=== PATIENT | male | born 1995 | race Caucasian/White ===

== ENCOUNTER 2022-06-27 18:16 | Inpatient (IN) | payer MEDICAID, SELFPAY ==
--- NOTE | ~2022-06-27 | CT_ITS ---
EXAMINATION: CT HEAD WITHOUT CONTRAST CLINICAL INFORMATION: new onset headache, HIV, fever COMPARISON: None. TECHNIQUE: Contiguous axial imaging was performed of the head without the administration of IV contrast. This CT examination was performed using dose optimization techniques as appropriate, variously including the following: *Automated exposure control *Adjustment of mA and/or kV according to patient size (this includes techniques or standardized protocols for targeted exams where dose is matched to indication/reason for exam; i.e. extremities or head) *Use of iterative reconstruction technique Dose: 764 mGy-cm FINDINGS: There is no evidence of acute intracranial hemorrhage or territorial infarction. No abnormal mass-effect or midline shift is seen. Lundberg to white matter differentiation is well preserved. No extra axial fluid collections. The ventricles are normal in size and configuration. There is no abnormal attenuation within the brain parenchyma. The soft tissues and osseous structures are normal. The sinuses and mastoid air cells are clear. CT/CT head/brain wo IV con IMPRESSION: No acute intracranial pathology.
--- NOTE | ~2022-06-27 | XR_ITS ---
EXAMINATION: XR PORTABLE CHEST CLINICAL INFORMATION: Fever etiology? COMPARISON: None. TECHNIQUE: AP portable upright view of the chest FINDINGS: Lungs are clear. No consolidation, pneumothorax, or pleural effusion. Cardiac and mediastinal contours are normal. Pulmonary vasculature is unremarkable. Osseous structures are unremarkable. XR/XR chest 1V IMPRESSION: No acute cardiopulmonary findings
--- NOTE | ~2022-06-27 | CT_ITS ---
EXAMINATION: CT ABDOMEN AND PELVIS WITH CONTRAST CLINICAL INFORMATION: HIV, hepatitis-C, with fever elevated LFT COMPARISON: None TECHNIQUE: Multidetector volumetric images were obtained from the superior aspect of the liver through the pubic symphysis following administration 85 mL of Omnipaque 350 intravenous contrast. Sagittal and coronal reformatted images were obtained on the technologist's workstation. Oral contrast: No This CT examination was performed using dose optimization techniques as appropriate, variously including the following: *Automated exposure control *Adjustment of mA and/or kV according to patient size (this includes techniques or standardized protocols for targeted exams where dose is matched to indication/reason for exam; i.e. extremities or head) *Use of iterative reconstruction technique DLP: 709 mGy-cm FINDINGS: LUNG BASES: Mild dependent atelectasis. LIVER, GALLBLADDER, AND BILIARY TREE: Liver is normal in size. Assessment of the contour is slightly limited by respiratory motion. No focal lesions are identified. Subtle periportal edema. The gallbladder is unremarkable with no evidence of radiopaque gallstones, gallbladder wall thickening, or obvious pericholecystic inflammatory changes. PANCREAS: Normal appearance of the pancreas. Subtle adjacent retroperitoneal fat stranding. No ductal dilatation. SPLEEN: Unremarkable. ADRENAL GLANDS: Normal appearance of the adrenal glands. Subtle adjacent retroperitoneal fat stranding is noted in this region. KIDNEYS AND URETERS: The kidneys are normal in size, shape, and attenuation. No hydronephrosis, hydroureter, or calculi seen. No perinephric stranding. BLADDER: Mild bladder wall thickening, likely due in part to under distention. GASTROINTESTINAL TRACT: Stomach, small bowel, and colon are normal in caliber. Normal appendix. No bowel wall thickening or surrounding inflammatory fat stranding. Moderate volume of stool in the colon. ABDOMINAL WALL: No significant hernia is appreciated. LYMPH NODES: Numerous subcentimeter retroperitoneal lymph nodes are present throughout the abdomen, measuring up to 8 mm in short axis, within normal limits by size criteria. VASCULAR: Unremarkable. PELVIC VISCERA: Unremarkable. OSSEOUS STRUCTURES: Unremarkable. CT/CT abdomen pelvis w IV con IMPRESSION: Subtle periportal edema in the liver, a nonspecific finding. This can be seen with multiplicity of conditions, most typically systemic hypervolemia. Viral hepatitis and cholangitis can also produce this appearance. Subtle retroperitoneal fat stranding with known numerous subcentimeter retroperitoneal lymph nodes, likely reactive in nature. This appearance could be due to chronic inflammation arising from the liver or pancreas amongst other possibilities. No specific findings of acute pancreatitis. Mild bladder wall thickening. Recommend correlation with urinalysis to exclude cystitis. Fleischner guidelines were followed.
--- NOTE | ~2022-06-27 | US_ITS ---
EXAMINATION: US ABDOMEN LIMITED CLINICAL INFORMATION: Nausea, vomiting, abdominal pain. COMPARISON: None TECHNIQUE: Real-time imaging of the right upper quadrant abdominal viscera, per ordering instruction only imaging of the gallbladder, right kidney and common bile duct were obtained. FINDINGS: GALLBLADDER: Normal. The gallbladder is physiologically distended without evidence of stones, sludge, polyps, wall thickening or pericholecystic fluid. COMMON BILE DUCT: Normal in caliber measuring 0.3 cm in diameter. RIGHT KIDNEY: Normal. No hydronephrosis. No renal calculi or focal parenchymal lesions. The kidney measures 10.3 cm in maximum dimension. US/US abdomen limited IMPRESSION: Unremarkable sonographic appearance of the gallbladder, common bile duct and right kidney.
[2022-06-27 18:21] VITALS: BP 106/65; PULSE 110; O2SAT 97
[2022-06-27 19:34] VITALS: BP 108/69; PULSE 139; RESP 16; TEMP 36.4; O2SAT 95; BMI 29.2
--- NOTE | 2022-06-27 19:35 | ED.NAVMDI ---
HPI - Nausea/Vomiting/Diarrhea General Chief complaint: Abdominal Pain <SUKH Baker - Last Filed: 06/27/22 19:42> Stated complaint: NAUSEA/VOMITING <SUKH Baker - Last Filed: 06/27/22 19:42> Time Seen by Provider: 06/27/22 22:10 <SUKH Baker - Last Filed: 06/27/22 19:42> Source: patient <Saman Huffman MD - Last Filed: 06/28/22 07:11> Mode of arrival: ambulatory <Saman Huffman MD - Last Filed: 06/28/22 07:11> Limitations: no limitations <Saman Huffman MD - Last Filed: 06/28/22 07:11> History of Present Illness HPI Narrative: Patient from [facility] with history of frequent cyclic vomiting syndrome, HIV with undetectable viral load, untreated hepatitis-C comes here for vomiting earlier today patient said he vomited only 1 time but was a big vomiting. Has history of same in the past multiple times denies use of cannabis also asking for crisis to help him out because of increased anxiety/panic attacks patient denies any significant abdominal pain patient does have a toothache and took penicillin earlier denies any pain now patient does not use any IVDA no back pain <Saman Huffman MD - Last Filed: 06/28/22 07:11> Related Data Allergies/Adverse reactions: Allergies Allergy/AdvReac Type Severity Reaction Status Date / Time Penicillins Allergy Vomiting Verified 06/28/22 03:27 <SUKH Baker - Last Filed: 06/27/22 19:42> Review of Systems Review of Systems: Yes all other systems are reviewed and are negative <Saman Huffman MD - Last Filed: 06/28/22 07:11> [facility] Social History Social History: Social History Alcohol intake: never Smoked in Last 30 Days: Yes Use of substances other than those prescribed or required for medical reasons: No Substance Use Type: Prescription Drugs Substance Use Type Other:: clonidine bid at bedtime Substance Use Frequency: Daily Substance Use Frequency Other:: 1 Last Used Substance: Days (ago) Any prior treatment program specific to substance use: Yes Advance Directives: No Advance Directives Information Provided: No <SUKH Baker - Last Filed: 06/27/22 19:42> Physical Exam Vital Signs: Vital Signs: Last Vital Signs Temp 99.2 F 06/28/22 04:33 Pulse 122 H 06/28/22 04:33 Resp 22 H 06/28/22 04:33 BP 132/70 06/28/22 04:33 Pulse Ox 97 06/28/22 04:33 O2 Del Method 06/28/22 04:33 BMI result Body Mass Index 29.2 <SUKH Baker - Last Filed: 06/27/22 19:42> Vital Signs: Last Vital Signs Temp 99.2 F 06/28/22 04:33 Pulse 122 H 06/28/22 04:33 Resp 22 H 06/28/22 04:33 BP 132/70 06/28/22 04:33 Pulse Ox 97 06/28/22 04:33 O2 Del Method 06/28/22 04:33 BMI result Body Mass Index 29.2 <Saman Huffman MD - Last Filed: 06/28/22 07:11> Appearance: Alert. Oriented X3. No acute distress. Eyes: PERRLA, No Nystagmus no pallor or icterus ENT: Pharynx normal. Oral Mucosa moist old cavity left upper premolar without any significant gum swelling or abscess Neck: Normal inspection. Neck supple. CVS: Normal heart rate and rhythm. Pulses normal. Respiratory: No respiratory distress. Equal air entry bilateral, no wheezing/rales/rhonchi Abdomen: Soft and nontender. Bowel sounds are present, no mass palpable, no CVA tenderness Skin: Skin warm and dry. Normal skin color. Normal skin turgor. Extremities: No lower extremity edema. No calf tenderness Neuro: Oriented X 3. No motor deficit. No sensory deficit.No cerebellar signs , cranial nerves II-XII intact <Saman Huffman MD - Last Filed: 06/28/22 07:11> Course Course Course Narrative: RME-- 27yo M presenting to ED from [facility] c/o epigastric abdominal pain, nausea and projectile vomiting x today. Admits he is on Penicillin for dental infection and has had similar sx in the past w/P[facility]. Also states someone else in the house has similar sx. Denies fever, constipation, dysuria/hematuria Abd soft with epigastric & RUQ ttp. Patient pale in triage, asking for juice and crackers Labs, UA, Abd US, IVF, SL Zofran, Maalox and pepcid ordered <USKH Baker - Last Filed: 06/27/22 19:42> Medications Administered Discontinued Medications Generic Name Dose Route Start Last Admin Trade Name Fresteven PRN Reason Stop Dose Admin Acetaminophen 650 mg 06/28/22 01:43 06/28/22 01:46 Acetaminophen 325 Mg Tablet PO 06/28/22 01:44 650 mg ONCE ONE Administration Al Hydroxide/Mg Hydroxide 30 ml 06/27/22 19:37 06/27/22 19:44 Magnesium Hydrox/Alum Hydrox 30 Ml Oral.Susp PO 06/27/22 19:38 30 ml ONCE ONE Administration Famotidine 20 mg 06/27/22 19:37 06/27/22 22:39 Famotidine/Pf 20 Mg/2 Ml Vial IVPUSH 06/27/22 19:38 20 mg ONCE ONE Administration Sodium Chloride 1,000 mls @ 999 mls/hr 06/27/22 19:45 06/28/22 00:14 Ns IV 06/27/22 20:45 Infused .Q1H1M LAURA Infusion Magnesium Sulfate 2 gm in 50 mls @ 100 mls/hr 06/27/22 22:37 06/27/22 23:28 Magnesium Sulfate/H2o IV 06/27/22 23:06 Infused ONCE ONE Infusion Sodium Chloride 1,000 mls @ 999 mls/hr 06/28/22 01:32 06/28/22 03:00 Ns IV 06/28/22 02:32 Infused .Q1H1M ONE Infusion Sodium Chloride 1,000 mls @ 999 mls/hr 06/28/22 03:00 06/28/22 04:49 Ns IV 06/28/22 04:00 Infused .Q1H1M ONE Infusion Ceftriaxone Sodium 1 gm/ 50 mls @ 100 mls/hr 06/28/22 03:35 06/28/22 04:50 Sodium Chloride IV 06/28/22 04:04 Infused ONCE ONE Infusion Vancomycin HCl 1,000 mg/ 270 mls @ 270 mls/hr 06/28/22 03:35 06/28/22 04:40 Sodium Chloride IV 06/28/22 04:34 270 mls/hr ONCE ONE Administration Ibuprofen 600 mg 06/28/22 02:58 06/28/22 03:16 Ibuprofen 600 Mg Tablet PO 06/28/22 02:59 600 mg ONCE ONE Administration Iohexol 85 ml 06/28/22 04:14 06/28/22 04:15 Iohexol 350 Mg/Ml 100 Ml Infus..Btl IV 06/28/22 04:15 85 ml ONCE ONE Administration Lorazepam 2 mg 06/27/22 22:37 06/27/22 22:47 Lorazepam 1 Mg Tablet PO 06/27/22 22:38 2 mg ONCE ONE Administration Lorazepam 2 mg 06/28/22 04:18 06/28/22 04:26 Lorazepam 1 Mg Tablet PO 06/28/22 04:19 2 mg ONCE ONE Administration Nicotine Polacrilex 2 mg 06/28/22 03:37 06/28/22 06:15 Nicotine Polacrilex 2 Mg Gum BUCCAL 2 mg Q2H PRN Administration Nicotine Cravings Ondansetron HCl 4 mg 06/27/22 19:39 06/27/22 19:44 Ondansetron Odt 4 Mg Tab.Rapdis TRANSLINGU 06/27/22 19:40 4 mg ONCE ONE Administration <SUKH Baker - Last Filed: 06/27/22 19:42> Medications Administered Discontinued Medications Generic Name Dose Route Start Last Admin Trade Name Freq PRN Reason Stop Dose Admin Acetaminophen 650 mg 06/28/22 01:43 06/28/22 01:46 Acetaminophen 325 Mg Tablet PO 06/28/22 01:44 650 mg ONCE ONE Administration Al Hydroxide/Mg Hydroxide 30 ml 06/27/22 19:37 06/27/22 19:44 Magnesium Hydrox/Alum Hydrox 30 Ml Oral.Susp PO 06/27/22 19:38 30 ml ONCE ONE Administration Famotidine 20 mg 06/27/22 19:37 06/27/22 22:39 Famotidine/Pf 20 Mg/2 Ml Vial IVPUSH 06/27/22 19:38 20 mg ONCE ONE Administration Sodium Chloride 1,000 mls @ 999 mls/hr 06/27/22 19:45 06/28/22 00:14 Ns IV 06/27/22 20:45 Infused .Q1H1M LAURA Infusion Magnesium Sulfate 2 gm in 50 mls @ 100 mls/hr 06/27/22 22:37 06/27/22 23:28 Magnesium Sulfate/H2o IV 06/27/22 23:06 Infused ONCE ONE Infusion Sodium Chloride 1,000 mls @ 999 mls/hr 06/28/22 01:32 06/28/22 03:00 Ns IV 06/28/22 02:32 Infused .Q1H1M ONE Infusion Sodium Chloride 1,000 mls @ 999 mls/hr 06/28/22 03:00 06/28/22 04:49 Ns IV 06/28/22 04:00 Infused .Q1H1M ONE Infusion Ceftriaxone Sodium 1 gm/ 50 mls @ 100 mls/hr 06/28/22 03:35 06/28/22 04:50 Sodium Chloride IV 06/28/22 04:04 Infused ONCE ONE Infusion Vancomycin HCl 1,000 mg/ 270 mls @ 270 mls/hr 06/28/22 03:35 06/28/22 04:40 Sodium Chloride IV 06/28/22 04:34 270 mls/hr ONCE ONE Administration Ibuprofen 600 mg 06/28/22 02:58 06/28/22 03:16 Ibuprofen 600 Mg Tablet PO 06/28/22 02:59 600 mg ONCE ONE Administration Iohexol 85 ml 06/28/22 04:14 06/28/22 04:15 Iohexol 350 Mg/Ml 100 Ml Infus..Btl IV 06/28/22 04:15 85 ml ONCE ONE Administration Lorazepam 2 mg 06/27/22 22:37 06/27/22 22:47 Lorazepam 1 Mg Tablet PO 06/27/22 22:38 2 mg ONCE ONE Administration Lorazepam 2 mg 06/28/22 04:18 06/28/22 04:26 Lorazepam 1 Mg Tablet PO 06/28/22 04:19 2 mg ONCE ONE Administration Nicotine Polacrilex 2 mg 06/28/22 03:37 06/28/22 06:15 Nicotine Polacrilex 2 Mg Gum BUCCAL 2 mg Q2H PRN Administration Nicotine Cravings Ondansetron HCl 4 mg 06/27/22 19:39 06/27/22 19:44 Ondansetron Odt 4 Mg Tab.Rapdis TRANSLINGU 06/27/22 19:40 4 mg ONCE ONE Administration <Saman Huffman MD - Last Filed: 06/28/22 07:11> Procedures Lumbar Puncture Time Out Performed: Yes <Saman Huffman MD - Last Filed: 06/28/22 07:11> Patient Position: upright <Saman Huffman MD - Last Filed: 06/28/22 07:11> Skin Prep: Povidone-Iodine 1% <Saman Huffman MD - Last Filed: 06/28/22 07:11> Local Anesthetic: lidocaine 1% <Saman Huffman MD - Last Filed: 06/28/22 07:11> Amount of anesthesia used (mL): 5 <Saman Huffman MD - Last Filed: 06/28/22 07:11> Spinal Needle Gauge: 22G <Saman Huffman MD - Last Filed: 06/28/22 07:11> Interspace Used: L4-L5 <Saman Huffman MD - Last Filed: 06/28/22 07:11> Fluid Initially Obtained: clear <Saman Huffman MD - Last Filed: 06/28/22 07:11> Complications: none <Saman Huffman MD - Last Filed: 06/28/22 07:11> MDM - Nausea/Vomiting/Diarrhea MDM Narrative Medical decision making narrative: Patient noticed to have fever without any leukocytosis etiology not very clear had a care is to the left upper premolar without any significant gum swelling patient not IV DA user no skin rash or open. , COVID, RSV, and flu negative. Will do blood culture lactic acid IV hydration 630 amPatient was given IV fluids more than 30 cc/kilogram also received IV vancomycin and Rocephin as a broad-spectrum coverage for possible sepsis with tachycardia fever and lactic acidosis and elevated procalcitonin level elevated liver functions are from hepatitis-C but we do not have any previous baseline LFTs source of infection is not very clear <Saman Huffman MD - Last Filed: 06/28/22 07:11> Lab Data Attestation: I reviewed the patient's lab results. <Saman Huffman MD - Last Filed: 06/28/22 07:11> Result diagrams: : 06/27/22 21:46 06/27/22 21:46 <SUKH Baker - Last Filed: 06/27/22 19:42> Labs: Lab Results 06/27/22 06/27/22 06/27/22 Range/Units 20:54 21:46 21:46 WBC 5.5 (4.8-10.8) X10*3/uL RBC 4.76 (4.60-5.80) X10*6/uL Hgb 13.0 L (14.0-18.0) g/dl Hct 41.0 L (42.0-52.0) % MCV 86.1 (80.0-98.0) fL MCH 27.3 (27.0-33.0) pg MCHC 31.7 (31.0-36.0) g/dl RDW 14.9 (11.0-16.0) % Plt Count 157 L (160-400) X10*3/uL MPV 10.5 (9.4-12.4) fL Immature Gran % (Auto) 0.4 (0.0-0.4) % Neut % (Auto) 92.6 H (45-73) % Lymph % (Auto) 5.5 L (20-40) % Mccone % (Auto) 1.1 L (2-11) % Eos % (Auto) 0.4 (0-4) % Baso % (Auto) 0.0 (0-2) % Lymph # (Auto) 0.3 L (1.2-4.9) X10*3/uL Mccone # (Auto) 0.1 (0.1-1.2) X10*3/uL Eos # (Auto) 0.0 (0.0-0.4) X10*3/uL Baso # (Auto) 0.0 (0.0-0.2) X10*3/uL Abs Immat Gran (auto) 0.02 (0.00-0.03) X10*3/uL Absolute Neuts (auto) 5.1 (2.0-8.3) x10*3/uL Absolute Nucleated RBC 0.000 (0.0-0.012) X10*3/uL Nucleated RBC % (auto) 0.0 (0.0-0.2) /100WBC Smear Tech's Comments VERIFIED Sodium 141 (135-145) mmol/L Potassium 4.9 (3.3-5.1) mmol/L Chloride 103 (96-108) mmol/L Carbon Dioxide 23 (22-29) mmol/L Anion Gap 20 (12-20) BUN 22 H (9-16) mg/dL Creatinine 1.38 (0.5-1.4) mg/dL Estim Creat Clear Calc 93.8 Estimated GFR > 60 Random Glucose 87 (60-115) mg/dL Lactic Acid (0.5-2.0) mmol/L Lactic Acid F/U @ 2Hr (0.5-2.0) mmol/L Calcium 9.7 (8.4-10.2) mg/dL Magnesium 1.4 L* (1.6-2.6) mg/dL Total Bilirubin 1.6 H (0.0-1.0) mg/dL Direct Bilirubin 1.2 H (0.0-0.5) mg/dL AST 285 H (5-37) U/L ALT 201 H (0-40) U/L Alkaline Phosphatase 175 H (39-117) U/L C-Reactive Protein 0.97 H (< or = 0.50) mg/dL Total Protein 7.9 (6.5-8.0) g/dL Albumin 4.1 (3.5-5.0) g/dL Lipase 17 (8-78) U/L Procalcitonin ng/mL Urine Color Urine Appearance Urine pH (5.0-9.0) Ur Specific [place] (1.005-1.025) Urine Protein (Neg-Trace) mg/dL Urine Glucose (UA) (Negative) mg/dL Urine Ketones (Negative) mg/dL Urine Blood (Negative) Urine Nitrite (Negative) Ur Leukocyte Esterase (Negative) Urine Opiates Screen (Not Detect) Urine Fentanyl Screen (Not Detect) Ur Barbiturates Screen (Not Detect) Ur Phencyclidine Scrn (Not Detect) Ur Amphetamines Screen (Not Detect) U Benzodiazepines Scrn (Not Detect) Urine Cocaine Screen (Not Detect) U Marijuana (THC) Screen (Not Detect) Ethyl Alcohol Cancelled < 10 Influenza Type A (PCR) (Negative) Influenza Type B (PCR) (Negative) RSV RNA Qual (PCR) (Negative) SARS-CoV-2 RNA (RT-PCR) (Negative) 06/27/22 06/27/22 06/27/22 Range/Units 21:46 21:46 21:46 WBC (4.8-10.8) X10*3/uL RBC (4.60-5.80) X10*6/uL Hgb (14.0-18.0) g/dl Hct (42.0-52.0) % MCV (80.0-98.0) fL MCH (27.0-33.0) pg MCHC (31.0-36.0) g/dl RDW (11.0-16.0) % Plt Count (160-400) X10*3/uL MPV (9.4-12.4) fL Immature Gran % (Auto) (0.0-0.4) % Neut % (Auto) (45-73) % Lymph % (Auto) (20-40) % Mccone % (Auto) (2-11) % Eos % (Auto) (0-4) % Baso % (Auto) (0-2) % Lymph # (Auto) (1.2-4.9) X10*3/uL Mccone # (Auto) (0.1-1.2) X10*3/uL Eos # (Auto) (0.0-0.4) X10*3/uL Baso # (Auto) (0.0-0.2) X10*3/uL Abs Immat Gran (auto) (0.00-0.03) X10*3/uL Absolute Neuts (auto) (2.0-8.3) x10*3/uL Absolute Nucleated RBC (0.0-0.012) X10*3/uL Nucleated RBC % (auto) (0.0-0.2) /100WBC Smear Tech's Comments Sodium (135-145) mmol/L Potassium (3.3-5.1) mmol/L Chloride (96-108) mmol/L Carbon Dioxide (22-29) mmol/L Anion Gap (12-20) BUN (9-16) mg/dL Creatinine (0.5-1.4) mg/dL Estim Creat Clear Calc Estimated GFR Random Glucose (60-115) mg/dL Lactic Acid (0.5-2.0) mmol/L Lactic Acid F/U @ 2Hr (0.5-2.0) mmol/L Calcium (8.4-10.2) mg/dL Magnesium (1.6-2.6) mg/dL Total Bilirubin (0.0-1.0) mg/dL Direct Bilirubin (0.0-0.5) mg/dL AST (5-37) U/L ALT (0-40) U/L Alkaline Phosphatase (39-117) U/L C-Reactive Protein (< or = 0.50) mg/dL Total Protein (6.5-8.0) g/dL Albumin (3.5-5.0) g/dL Lipase (8-78) U/L Procalcitonin 97.23 ng/mL Urine Color Dark Yellow Urine Appearance Clear Urine pH 5.5 (5.0-9.0) Ur Specific [place] >= 1.030 H (1.005-1.025) Urine Protein Negative (Neg-Trace) mg/dL Urine Glucose (UA) Negative (Negative) mg/dL Urine Ketones Trace (Negative) mg/dL Urine Blood Negative (Negative) Urine Nitrite Negative (Negative) Ur Leukocyte Esterase Negative (Negative) Urine Opiates Screen Not Detected (Not Detect) Urine Fentanyl Screen Not Detected (Not Detect) Ur Barbiturates Screen Not Detected (Not Detect) Ur Phencyclidine Scrn Not Detected (Not Detect) Ur Amphetamines Screen Not Detected (Not Detect) U Benzodiazepines Scrn POSITIVE H (Not Detect) Urine Cocaine Screen Not Detected (Not Detect) U Marijuana (THC) Screen Not Detected (Not Detect) Ethyl Alcohol Influenza Type A (PCR) (Negative) Influenza Type B (PCR) (Negative) RSV RNA Qual (PCR) (Negative) SARS-CoV-2 RNA (RT-PCR) (Negative) 06/28/22 06/28/22 06/28/22 Range/Units 01:50 03:19 06:00 WBC (4.8-10.8) X10*3/uL RBC (4.60-5.80) X10*6/uL Hgb (14.0-18.0) g/dl Hct (42.0-52.0) % MCV (80.0-98.0) fL MCH (27.0-33.0) pg MCHC (31.0-36.0) g/dl RDW (11.0-16.0) % Plt Count (160-400) X10*3/uL MPV (9.4-12.4) fL Immature Gran % (Auto) (0.0-0.4) % Neut % (Auto) (45-73) % Lymph % (Auto) (20-40) % Mccone % (Auto) (2-11) % Eos % (Auto) (0-4) % Baso % (Auto) (0-2) % Lymph # (Auto) (1.2-4.9) X10*3/uL [place] # (Auto) (0.1-1.2) X10*3/uL Eos # (Auto) (0.0-0.4) X10*3/uL Baso # (Auto) (0.0-0.2) X10*3/uL Abs Immat Gran (auto) (0.00-0.03) X10*3/uL Absolute Neuts (auto) (2.0-8.3) x10*3/uL Absolute Nucleated RBC (0.0-0.012) X10*3/uL Nucleated RBC % (auto) (0.0-0.2) /100WBC Smear Tech's Comments Sodium (135-145) mmol/L Potassium (3.3-5.1) mmol/L Chloride (96-108) mmol/L Carbon Dioxide (22-29) mmol/L Anion Gap (12-20) BUN (9-16) mg/dL Creatinine (0.5-1.4) mg/dL Estim Creat Clear Calc Estimated GFR Random Glucose (60-115) mg/dL Lactic Acid 2.8 H* (0.5-2.0) mmol/L Lactic Acid F/U @ 2Hr 2.8 H* (0.5-2.0) mmol/L Calcium (8.4-10.2) mg/dL Magnesium (1.6-2.6) mg/dL Total Bilirubin (0.0-1.0) mg/dL Direct Bilirubin (0.0-0.5) mg/dL AST (5-37) U/L ALT (0-40) U/L Alkaline Phosphatase (39-117) U/L C-Reactive Protein (< or = 0.50) mg/dL Total Protein (6.5-8.0) g/dL Albumin (3.5-5.0) g/dL Lipase (8-78) U/L Procalcitonin ng/mL Urine Color Urine Appearance Urine pH (5.0-9.0) Ur Specific [place] (1.005-1.025) Urine Protein (Neg-Trace) mg/dL Urine Glucose (UA) (Negative) mg/dL Urine Ketones (Negative) mg/dL Urine Blood (Negative) Urine Nitrite (Negative) Ur Leukocyte Esterase (Negative) Urine Opiates Screen (Not Detect) Urine Fentanyl Screen (Not Detect) Ur Barbiturates Screen (Not Detect) Ur Phencyclidine Scrn (Not Detect) Ur Amphetamines Screen (Not Detect) U Benzodiazepines Scrn (Not Detect) Urine Cocaine Screen (Not Detect) U Marijuana (THC) Screen (Not Detect) Ethyl Alcohol Influenza Type A (PCR) NEGATIVE (Negative) Influenza Type B (PCR) NEGATIVE (Negative) RSV RNA Qual (PCR) NEGATIVE (Negative) SARS-CoV-2 RNA (RT-PCR) NEGATIVE (Negative) <SUKH Baker - Last Filed: 06/27/22 19:42> Lab Results 06/27/22 06/27/22 06/27/22 Range/Units 20:54 21:46 21:46 WBC 5.5 (4.8-10.8) X10*3/uL RBC 4.76 (4.60-5.80) X10*6/uL Hgb 13.0 L (14.0-18.0) g/dl Hct 41.0 L (42.0-52.0) % MCV 86.1 (80.0-98.0) fL MCH 27.3 (27.0-33.0) pg MCHC 31.7 (31.0-36.0) g/dl RDW 14.9 (11.0-16.0) % Plt Count 157 L (160-400) X10*3/uL MPV 10.5 (9.4-12.4) fL Immature Gran % (Auto) 0.4 (0.0-0.4) % Neut % (Auto) 92.6 H (45-73) % Lymph % (Auto) 5.5 L (20-40) % Mccone % (Auto) 1.1 L (2-11) % Eos % (Auto) 0.4 (0-4) % Baso % (Auto) 0.0 (0-2) % Lymph # (Auto) 0.3 L (1.2-4.9) X10*3/uL [place] # (Auto) 0.1 (0.1-1.2) X10*3/uL Eos # (Auto) 0.0 (0.0-0.4) X10*3/uL Baso # (Auto) 0.0 (0.0-0.2) X10*3/uL Abs Immat Gran (auto) 0.02 (0.00-0.03) X10*3/uL Absolute Neuts (auto) 5.1 (2.0-8.3) x10*3/uL Absolute Nucleated RBC 0.000 (0.0-0.012) X10*3/uL Nucleated RBC % (auto) 0.0 (0.0-0.2) /100WBC Smear Tech's Comments VERIFIED Sodium 141 (135-145) mmol/L Potassium 4.9 (3.3-5.1) mmol/L Chloride 103 (96-108) mmol/L Carbon Dioxide 23 (22-29) mmol/L Anion Gap 20 (12-20) BUN 22 H (9-16) mg/dL Creatinine 1.38 (0.5-1.4) mg/dL Estim Creat Clear Calc 93.8 Estimated GFR > 60 Random Glucose 87 (60-115) mg/dL Lactic Acid (0.5-2.0) mmol/L Lactic Acid F/U @ 2Hr (0.5-2.0) mmol/L Calcium 9.7 (8.4-10.2) mg/dL Magnesium 1.4 L* (1.6-2.6) mg/dL Total Bilirubin 1.6 H (0.0-1.0) mg/dL Direct Bilirubin 1.2 H (0.0-0.5) mg/dL AST 285 H (5-37) U/L ALT 201 H (0-40) U/L Alkaline Phosphatase 175 H (39-117) U/L C-Reactive Protein 0.97 H (< or = 0.50) mg/dL Total Protein 7.9 (6.5-8.0) g/dL Albumin 4.1 (3.5-5.0) g/dL Lipase 17 (8-78) U/L Procalcitonin ng/mL Urine Color Urine Appearance Urine pH (5.0-9.0) Ur Specific [place] (1.005-1.025) Urine Protein (Neg-Trace) mg/dL Urine Glucose (UA) (Negative) mg/dL Urine Ketones (Negative) mg/dL Urine Blood (Negative) Urine Nitrite (Negative) Ur Leukocyte Esterase (Negative) Urine Opiates Screen (Not Detect) Urine Fentanyl Screen (Not Detect) Ur Barbiturates Screen (Not Detect) Ur Phencyclidine Scrn (Not Detect) Ur Amphetamines Screen (Not Detect) U Benzodiazepines Scrn (Not Detect) Urine Cocaine Screen (Not Detect) U Marijuana (THC) Screen (Not Detect) Ethyl Alcohol Cancelled < 10 Influenza Type A (PCR) (Negative) Influenza Type B (PCR) (Negative) RSV RNA Qual (PCR) (Negative) SARS-CoV-2 RNA (RT-PCR) (Negative) 06/27/22 06/27/22 06/27/22 Range/Units 21:46 21:46 21:46 WBC (4.8-10.8) X10*3/uL RBC (4.60-5.80) X10*6/uL Hgb (14.0-18.0) g/dl Hct (42.0-52.0) % MCV (80.0-98.0) fL MCH (27.0-33.0) pg MCHC (31.0-36.0) g/dl RDW (11.0-16.0) % Plt Count (160-400) X10*3/uL MPV (9.4-12.4) fL Immature Gran % (Auto) (0.0-0.4) % Neut % (Auto) (45-73) % Lymph % (Auto) (20-40) % [place] % (Auto) (2-11) % Eos % (Auto) (0-4) % Baso % (Auto) (0-2) % Lymph # (Auto) (1.2-4.9) X10*3/uL [place] # (Auto) (0.1-1.2) X10*3/uL Eos # (Auto) (0.0-0.4) X10*3/uL Baso # (Auto) (0.0-0.2) X10*3/uL Abs Immat Gran (auto) (0.00-0.03) X10*3/uL Absolute Neuts (auto) (2.0-8.3) x10*3/uL Absolute Nucleated RBC (0.0-0.012) X10*3/uL Nucleated RBC % (auto) (0.0-0.2) /100WBC Smear Tech's Comments Sodium (135-145) mmol/L Potassium (3.3-5.1) mmol/L Chloride (96-108) mmol/L Carbon Dioxide (22-29) mmol/L Anion Gap (12-20) BUN (9-16) mg/dL Creatinine (0.5-1.4) mg/dL Estim Creat Clear Calc Estimated GFR Random Glucose (60-115) mg/dL Lactic Acid (0.5-2.0) mmol/L Lactic Acid F/U @ 2Hr (0.5-2.0) mmol/L Calcium (8.4-10.2) mg/dL Magnesium (1.6-2.6) mg/dL Total Bilirubin (0.0-1.0) mg/dL Direct Bilirubin (0.0-0.5) mg/dL AST (5-37) U/L ALT (0-40) U/L Alkaline Phosphatase (39-117) U/L C-Reactive Protein (< or = 0.50) mg/dL Total Protein (6.5-8.0) g/dL Albumin (3.5-5.0) g/dL Lipase (8-78) U/L Procalcitonin 97.23 ng/mL Urine Color Dark Yellow Urine Appearance Clear Urine pH 5.5 (5.0-9.0) Ur Specific [place] >= 1.030 H (1.005-1.025) Urine Protein Negative (Neg-Trace) mg/dL Urine Glucose (UA) Negative (Negative) mg/dL Urine Ketones Trace (Negative) mg/dL Urine Blood Negative (Negative) Urine Nitrite Negative (Negative) Ur Leukocyte Esterase Negative (Negative) Urine Opiates Screen Not Detected (Not Detect) Urine Fentanyl Screen Not Detected (Not Detect) Ur Barbiturates Screen Not Detected (Not Detect) Ur Phencyclidine Scrn Not Detected (Not Detect) Ur Amphetamines Screen Not Detected (Not Detect) U Benzodiazepines Scrn POSITIVE H (Not Detect) Urine Cocaine Screen Not Detected (Not Detect) U Marijuana (THC) Screen Not Detected (Not Detect) Ethyl Alcohol Influenza Type A (PCR) (Negative) Influenza Type B (PCR) (Negative) RSV RNA Qual (PCR) (Negative) SARS-CoV-2 RNA (RT-PCR) (Negative) 06/28/22 06/28/22 06/28/22 Range/Units 01:50 03:19 06:00 WBC (4.8-10.8) X10*3/uL RBC (4.60-5.80) X10*6/uL Hgb (14.0-18.0) g/dl Hct (42.0-52.0) % MCV (80.0-98.0) fL MCH (27.0-33.0) pg MCHC (31.0-36.0) g/dl RDW (11.0-16.0) % Plt Count (160-400) X10*3/uL MPV (9.4-12.4) fL Immature Gran % (Auto) (0.0-0.4) % Neut % (Auto) (45-73) % Lymph % (Auto) (20-40) % [place]cc[place] % (Auto) (2-11) % Eos % (Auto) (0-4) % Baso % (Auto) (0-2) % Lymph # (Auto) (1.2-4.9) X10*3/uL [place] # (Auto) (0.1-1.2) X10*3/uL Eos # (Auto) (0.0-0.4) X10*3/uL Baso # (Auto) (0.0-0.2) X10*3/uL Abs Immat Gran (auto) (0.00-0.03) X10*3/uL Absolute Neuts (auto) (2.0-8.3) x10*3/uL Absolute Nucleated RBC (0.0-0.012) X10*3/uL Nucleated RBC % (auto) (0.0-0.2) /100WBC Smear Tech's Comments Sodium (135-145) mmol/L Potassium (3.3-5.1) mmol/L Chloride (96-108) mmol/L Carbon Dioxide (22-29) mmol/L Anion Gap (12-20) BUN (9-16) mg/dL Creatinine (0.5-1.4) mg/dL Estim Creat Clear Calc Estimated GFR Random Glucose (60-115) mg/dL Lactic Acid 2.8 H* (0.5-2.0) mmol/L Lactic Acid F/U @ 2Hr 2.8 H* (0.5-2.0) mmol/L Calcium (8.4-10.2) mg/dL Magnesium (1.6-2.6) mg/dL Total Bilirubin (0.0-1.0) mg/dL Direct Bilirubin (0.0-0.5) mg/dL AST (5-37) U/L ALT (0-40) U/L Alkaline Phosphatase (39-117) U/L C-Reactive Protein (< or = 0.50) mg/dL Total Protein (6.5-8.0) g/dL Albumin (3.5-5.0) g/dL Lipase (8-78) U/L Procalcitonin ng/mL Urine Color Urine Appearance Urine pH (5.0-9.0) Ur Specific [place] (1.005-1.025) Urine Protein (Neg-Trace) mg/dL Urine Glucose (UA) (Negative) mg/dL Urine Ketones (Negative) mg/dL Urine Blood (Negative) Urine Nitrite (Negative) Ur Leukocyte Esterase (Negative) Urine Opiates Screen (Not Detect) Urine Fentanyl Screen (Not Detect) Ur Barbiturates Screen (Not Detect) Ur Phencyclidine Scrn (Not Detect) Ur Amphetamines Screen (Not Detect) U Benzodiazepines Scrn (Not Detect) Urine Cocaine Screen (Not Detect) U Marijuana (THC) Screen (Not Detect) Ethyl Alcohol Influenza Type A (PCR) NEGATIVE (Negative) Influenza Type B (PCR) NEGATIVE (Negative) RSV RNA Qual (PCR) NEGATIVE (Negative) SARS-CoV-2 RNA (RT-PCR) NEGATIVE (Negative) <Saman Huffman MD - Last Filed: 06/28/22 07:11> Critical Care Time Critical Care Time Critical Care Time: Yes <Saman Huffman MD - Last Filed: 06/28/22 07:11> Total Critical Care Time: 65 <Saman Huffman MD - Last Filed: 06/28/22 07:11> Attestation: The patient was critically ill with a high probability of imminent or life threatening deterioration. I spent greater than70 minutes of discontinuous time evaluating the patient,delivering critical care at the bedside, discussing and evaluating pertinent data with consultants. Critical care time does not include time spent performing separately billable procedures or teaching. Total time spent performing critical care was 60 minutes. <Saman Huffman MD - Last Filed: 06/28/22 07:11> Discharge Plan Discharge Clinical Impression: Fever, Elevated lactic acid level, Vomiting <SUKH Baker - Last Filed: 06/27/22 19:42> Patient Disposition: Admitted As Inpatient <SUKH Baker - Last Filed: 06/27/22 19:42>
[2022-06-27] MEDS: Magnesium Hydrox/Alum Hydrox 30 ML ORAL.SUSP PO (19:44)
[2022-06-27] MEDS: Ondansetron ODT 4 MG TAB.RAPDIS TRANSLINGU (19:44)
[2022-06-27 22:00] LABS: Appearance Urine Clear; Color Urine Dark Yellow; Eosinophils Percent Auto 0.4 % (0-4); Glucose Urine UA Negative (Negative); Imm Gran Abs Auto 0.02 X10*3/uL (0.00-0.03); Imm Gran Pct Auto 0.4 % (0.0-0.4); Leukocyte Esterase Urine Negative (Negative); Lymphocytes Absolute Auto 0.3 X10*3/uL (1.2-4.9); Lymphocytes Percent Auto 5.5 % (20-40); MANUAL DIFF FLAG SCAN; Mean Corpuscular HGB Conc 31.7 g/dl (31.0-36.0); Mean Corpuscular Hemoglobin 27.3 pg (27.0-33.0); Mean Corpuscular Volume 86.1 fL (80.0-98.0); Mean Platelet Volume 10.5 fL (9.4-12.4); Monocytes Absolute Auto 0.1 X10*3/uL (0.1-1.2); Monocytes Percent Auto 1.1 % (2-11); Neutrophils Absolute Auto 5.1 x10*3/uL (2.0-8.3); Neutrophils Percent Auto 92.6 % (45-73); Nitrite Urine Negative (Negative); PH 5.5 (5.0-9.0); Platelet Count 157 X10*3/uL (160-400); Red Blood Count 4.76 X10*6/uL (4.60-5.80); Red Cell Distribution Width 14.9 % (11.0-16.0); SCAN SMEAR FLAG 1; Specific Gravity - Urine >= 1.030 (1.005-1.025); Urine Blood Negative (Negative); Urine Ketones Trace mg/dL (Negative); Urine Protein Negative (Neg-Trace); White Blood Count 5.5 X10*3/uL (4.8-10.8)
[2022-06-27 22:09] LABS: Amphetamine Screen Urine Not Detected (Not Detect); Barbiturates, Urine Not Detected (Not Detect); Benzodiazepines Screen Urine POSITIVE (Not Detect); Cannabinoid Screen Urine Not Detected (Not Detect); Cocaine Screen Urine Not Detected (Not Detect); Fentanyl, urine Not Detected (Not Detect); Opiate Screen Urine Not Detected (Not Detect); Phencyclidine Screen Urine Not Detected (Not Detect)
[2022-06-27 22:15] LABS: Alanine Aminotransferase 201 U/L (0-40); Albumin Level 4.1 g/dL (3.5-5.0); Alkaline Phosphatase 175 U/L (39-117); Anion Gap 20 (12-20); Aspartate Amino Transferase 285 U/L (5-37); Bilirubin Direct 1.2 mg/dL (0.0-0.5); Bilirubin Total 1.6 mg/dL (0.0-1.0); Blood Urea Nitrogen 22 mg/dL (9-16); Calcium 9.7 mg/dL (8.4-10.2); Carbon Dioxide 23 mmol/L (22-29); Chloride 103 mmol/L (96-108); Creatinine Clr Calc Pharmacy 93.8; Estimated Glomerular Filt Rate > 60; Ethanol < 10 mg/dL; Glucose Random 87 mg/dL (60-115); Lipase 17 U/L (8-78); Magnesium 1.4 mg/dL (1.6-2.6); Potassium 4.9 mmol/L (3.3-5.1); Sodium 141 mmol/L (135-145); Total Protein 7.9 g/dL (6.5-8.0)
[2022-06-27 22:20] LABS: SLIDE REVIEW VERIFIED
[2022-06-27] MEDS: 0.9 % Sodium Chloride 1,000 ML 999 ML IV (22:35)
[2022-06-27] MEDS: Famotidine/PF 20 MG/2 ML VIAL IVPUSH (22:39)
[2022-06-27] MEDS: LORazepam 1 MG TABLET 2 MG PO (22:47)
[2022-06-27] MEDS: Magnesium Sulfate/H2O 2 GM/50 ML PIGGYBACK IV (22:48)
[2022-06-27 23:06] VITALS: BP 112/67; PULSE 124; RESP 18; TEMP 37.3; O2SAT 97
--- NOTE | 2022-06-27 23:11 | PC.NURSE ---
NS and pepcid admnistered late r/t meds were ordered while patient was in ED waiting area. Pt initially diaphoretic, pale skin cool to touch. Pt denying abdominal pain and nausea at this time was able to tolerate apple juice during po trial.
[2022-06-28] VITALS (7 sets, daily range): BP systolic 104–143; BP diastolic 62–88; PULSE 97–133; RESP 16–22; TEMP 36.4–38.5; O2SAT 94–97; BMI 30.2
[2022-06-28] MEDS: 0.9 % Sodium Chloride 1,000 ML 999 ML IV ×2 (01:37→03:17)
[2022-06-28] MEDS: Acetaminophen 325 MG TABLET 650 MG PO ×2 (01:46→17:43)
--- NOTE | 2022-06-28 01:56 | PC.NURSE ---
Pt is denying alcohol/drug use.
[2022-06-28 02:32] LABS: Influenza A PCR NEGATIVE (Negative); Influenza B PCR NEGATIVE (Negative); Resp Syncy Virus RNA Qual PCR NEGATIVE (Negative); SARS COV2 PCR INHOUSE NEGATIVE (Negative)
[2022-06-28] MEDS: Ibuprofen 600 MG TABLET PO (03:16)
[2022-06-28 03:37] LABS: Lactic Acid 2.8 mmol/L (0.5-2.0)
[2022-06-28] MEDS: cefTRIAXone sodium 1 GM in 0.9 % Sodium Chloride 50 ML IV (04:00)
[2022-06-28] MEDS: iohexoL 350 MG/ML 100 ML INFUS..BTL 85 ML IV (04:15)
[2022-06-28] MEDS: Nicotine Polacrilex 2 MG GUM BUCCAL ×2 (04:15→06:15)
[2022-06-28] MEDS: LORazepam 1 MG TABLET 2 MG PO (04:26)
[2022-06-28] MEDS: vancomycin HCL 1,000 MG in 0.9 % Sodium Chloride 250 ML 270 MG IV (04:40)
[2022-06-28 05:10] LABS: C Reactive Protein 0.97 mg/dL (< or = 0.50)
[2022-06-28 05:24] LABS: Reflex Lactate? Lactic Acid Added
[2022-06-28 06:00] LABS: Procalcitonin 97.23 ng/mL
[2022-06-28 06:29] LABS: ~Lactic Acid-LAB USE ONLY 2.8 mmol/L (0.5-2.0)
--- NOTE | 2022-06-28 06:55 | PC.NURSE ---
Provider performed lumbar puncture to test CSF for meningococcal infection. Pt tolerated procedure well. CSF was clear liquid. Pt informed to lay flat in bed for one hour post procedure. Pt has no change in mental status post procedure, no complaints of headache, nausea, or vomiting.
[2022-06-28 07:11] LABS: Glucose CSF 62 mg/dL; Total Protein CSF 29.6 mg/dL (15-45)
[2022-06-28 07:46] LABS: CSF Monos 11 %; CSF Other Cells % 4 %; Lymphocytes CSF 79 %; Neutrophils CSF 7 %
[2022-06-28 08:06] LABS: Reflex Lactate? 2 Y
[2022-06-28 08:20] LABS: CSF Monos 21 %; CSF Other Cells % 6 %; Lymphocytes CSF 67 %; Neutrophils CSF 6 %
[2022-06-28 08:21] LABS: Appearance CSF CLEAR; CSF Tube # 1; Color CSF COLORLESS; Red Blood Cell CSF 1 MM*3; White Blood Cell CSF 6 MM*3
[2022-06-28 08:22] LABS: Appearance CSF CLEAR; CSF Tube # 4
[2022-06-28 08:23] LABS: Color CSF COLORLESS; Red Blood Cell CSF 1 MM*3; White Blood Cell CSF 8 MM*3
[2022-06-28 08:33] LABS: CSF Appearance Clear, Colorless; CSF Tube # 2
--- NOTE | 2022-06-28 08:38 | P.HPHOSP_ITS ---
History of Present Illness Date of Service: 06/28/22 Attending physician on admission: Reina Mattson Chief Complaint: Vomiting 27-year-old gentleman currently residing [facility] for last 5 months with past medical history significant for recently diagnosed HIV and hepatitis-C has not received treatment for PAD presented to [facility] due to symptoms of nausea and vomiting, he had 1 episode of large vomitus non bloody without associated abdominal pain no diarrhea no other inmates with similar symptoms no outside food he has had multiple episodes of vomiting in the past his last marijuana use was 2 months ago patient complaining of worsening anxiety feels current medications are not helping to control his anxiety only Klonopin works, he is requesting for psychiatric evaluation patient few days ago diagnosed to have left-sided to pain for which she took penicillin for 3 days, currently denies tootache , denies fever chills rigors, in the emergency room patient was noted to have fever of 101.3, checks x-ray showed no acute abnormality, CT abdomen and pelvis showed subtle periportal edema in the liver nonspecific finding, subtle retroperitoneal fat stranding with known numerous subcentimeter retroperitoneal lymph nodes likely reactive, arising from chronic inflammation from liver or pancreas among other possibilities no acute pancreatitis was noted mild bladder wall thickening was noted, abdominal ultrasound showed unremarkable gallbladder, common bile duct and right kidney, urinalysis is unremarkable, CT head showed no acute abnormality, CBC normal, platelet 157, urine toxicology positive for benzo, patient is on Klonopin, influenza a, RSV and COVID negative, he was noted to have a low magnesium of 1.4, elevated AST, ALT, CRP 0.97 and elevated procalcitonin of 97.23 since is no source of infection found for fever patient underwent LP that showed WBC of 8, 1+ RBC, normal blood sugar and protein, patient noted to be very anxious in the emergency room required couple dosages of Ativan also received IV vancomycin, ceftriaxone and now being admitted to [facility] for continued monitoring and treatment for worsening anxiety, vomiting and fever. Review of Systems Review of Systems: General no headache no dizziness no fever chills. CVS no chest pain, no palpitation. Respiratory no cough no sob. Gastrointestinal nausea vomiting resolved, no abdominal pain no urinary urgency, no frequency Skin no rash musculoskeletal no pain PMFSH Pertinent family history: patient not aware of father's history patient's mother, sister and grand mother has severe anxiety Social History Household Members: None Housing: Other Do you presently have visiting nurse or other home services: No Alcohol intake: never Patient Tobacco Use Status: Current someday Tobacco user Tobacco use type: Cigarette Smoked in Last 30 Days: Yes Patient Interested in Nicotine Replacement: Yes Patient Given Instructions on How to Stop Smoking: Yes Date Education Initiated: 06/28/22 Use of substances other than those prescribed or required for medical reasons: No Substance Use Type: Prescription Drugs Substance Use Type Other:: clonidine bid at bedtime Substance Use Frequency: Daily Substance Use Frequency Other:: 1 Last Used Substance: Days (ago) Currently Displaying Signs/Symptoms of Drug Intoxication Withdrawal: No Any prior treatment program specific to substance use: Yes Have you been hit, kicked, punched, or otherwise hurt by someone within the past year? If so, by whom?: No Do you feel safe in your current relationship?: No Current Relationship Is there a partner from a previous relationship who is making you feel unsafe now?: No Are you made to feel afraid or neglected: No Advance Directives: No Advance Directives Information Provided: No Do you have thoughts of harming others: None Do you have a plan to hurt others: No Plan Recently lost weight without trying: No Nutrition Risks: No Nutritional Risk service: No Current occupational status: unemployed Meds Allergies Allergy/AdvReac Type Severity Reaction Status Date / Time Penicillins Allergy Vomiting Verified 06/28/22 03:27 Active Medications: Current Medications Nicotine Polacrilex (Nicotine Polacrilex 2 Mg Gum) 4 mg BUCCAL Q2H PRN PRN Reason: Nicotine Cravings Pharmacy Consult (Consult Rx Vancomycin Dosing) 1 each MISCELLANE DAILY PRN PRN Reason: Consult order Home Medications Medication Instructions Recorded Confirmed Last Taken Type baclofen 20 mg tablet 1 tab PO BID 06/28/22 06/28/22 06/27/22 History clonazepam 0.5 mg tablet 1 tab PO DAILY PRN panic attack 06/28/22 06/28/22 06/27/22 History clonidine HCl 0.1 mg tablet 1 tab PO TID PRN Anxiety/Insomnia 06/28/22 06/28/22 Unknown History diphenhydramine HCl 50 mg capsule 1 cap PO BEDTIME 06/28/22 06/28/2222 History (Banophen) gabapentin 800 mg tablet 1 tab PO TID 06/28/22 06/28/22 06/27/22 History methadone 10 mg/mL oral concentrate 155 mg PO DAILY 06/28/22 06/28/22 Unknown History nicotine (polacrilex) 2 mg buccal 2 mg PO Q1H PRN Smoking Cessation 06/28/22 06/28/22 06/27/22 History mini lozenge quetiapine 25 mg tablet 25 mg PO BID 06/28/22 Unknown History venlafaxine 75 mg capsule,extended 2 cap PO DAILY 06/28/22 06/28/22 06/27/22 History release 24 hr Physical Exam Vital Signs and Narrative: Vital Signs: Last Vital Signs Temp 97.7 F 06/28/22 07:18 Pulse 97 06/28/22 07:18 Resp 18 06/28/22 07:18 BP 123/73 06/28/22 07:18 Pulse Ox 97 06/28/22 07:18 O2 Del Method 06/28/22 07:18 BMI result Body Mass Index 29.2 Const: Other: General well-developed male awake alert x3, resting comfortably in no acute distress. HEENT pupils equal round reactive to light and accommodation oral cavity missing teeth, dental caries no redness no swelling, no tenderness Neck supple CVS regular rate rhythm, Respiratory lungs clear to auscultation, no respiratory distress, no wheeze, no rhonchi. Gastrointestinal abdomen soft, nontender, bowel sounds audible, no guarding , no rigidity. Extremities no edema. Neuro nonfocal patient moving all 4 extremity speech clear. Skin no rash psych appropriate affect Results Labs CBC and Chem 7: 06/27/22 21:46 06/27/22 21:46 Labs: Laboratory Results - last 24 hr 06/27/22 06/27/22 06/27/22 20:54 21:46 21:46 MCV 86.1 MCH 27.3 MCHC 31.7 RDW 14.9 Plt Count 157 L MPV 10.5 Immature Gran % (Auto) 0.4 Neut % (Auto) 92.6 H Lymph % (Auto) 5.5 L Childress % (Auto) 1.1 L Eos % (Auto) 0.4 Baso % (Auto) 0.0 Lymph # (Auto) 0.3 L Childress # (Auto) 0.1 Eos # (Auto) 0.0 Baso # (Auto) 0.0 Abs Immat Gran (auto) 0.02 Absolute Neuts (auto) 5.1 Absolute Nucleated RBC 0.000 Nucleated RBC % (auto) 0.0 Smear Tech's Comments VERIFIED Anion Gap 20 Estim Creat Clear Calc 93.8 Estimated GFR > 60 Random Glucose 87 Lactic Acid Lactic Acid F/U @ 2Hr Calcium 9.7 Magnesium 1.4 L* Total Bilirubin 1.6 H Direct Bilirubin 1.2 H AST 285 H ALT 201 H Alkaline Phosphatase 175 H C-Reactive Protein 0.97 H Total Protein 7.9 Albumin 4.1 Lipase 17 Procalcitonin Urine Color Urine Appearance Urine pH Ur Specific Hutchinson Urine Protein Urine Glucose (UA) Urine Ketones Urine Blood Urine Nitrite Ur Leukocyte Esterase CSF Tube Number CSF Volume CSF Appearance CSF Color CSF WBC CSF RBC CSF Neutrophils CSF Lymphocytes CSF Monocytes % CSF Other Cells % CSF Appearance (b) CSF Glucose CSF Total Protein Urine Opiates Screen Urine Fentanyl Screen Ur Barbiturates Screen Ur Phencyclidine Scrn Ur Amphetamines Screen U Benzodiazepines Scrn Urine Cocaine Screen U Marijuana (THC) Screen Ethyl Alcohol Cancelled < 10 Influenza Type A (PCR) Influenza Type B (PCR) RSV RNA Qual (PCR) SARS-CoV-2 RNA (RT-PCR) 06/27/22 06/27/22 06/27/22 21:46 21:46 21:46 MCV MCH MCHC RDW Plt Count MPV Immature Gran % (Auto) Neut % (Auto) Lymph % (Auto) Childress % (Auto) Eos % (Auto) Baso % (Auto) Lymph # (Auto) Childress # (Auto) Eos # (Auto) Baso # (Auto) Abs Immat Gran (auto) Absolute Neuts (auto) Absolute Nucleated RBC Nucleated RBC % (auto) Smear Tech's Comments Anion Gap Estim Creat Clear Calc Estimated GFR Random Glucose Lactic Acid Lactic Acid F/U @ 2Hr Calcium Magnesium Total Bilirubin Direct Bilirubin AST ALT Alkaline Phosphatase C-Reactive Protein Total Protein Albumin Lipase Procalcitonin 97.23 Urine Color Dark Yellow Urine Appearance Clear Urine pH 5.5 Ur Specific Hutchinson >= 1.030 H Urine Protein Negative Urine Glucose (UA) Negative Urine Ketones Trace Urine Blood Negative Urine Nitrite Negative Ur Leukocyte Esterase Negative CSF Tube Number CSF Volume CSF Appearance CSF Color CSF WBC CSF RBC CSF Neutrophils CSF Lymphocytes CSF Monocytes % CSF Other Cells % CSF Appearance (b) CSF Glucose CSF Total Protein Urine Opiates Screen Not Detected Urine Fentanyl Screen Not Detected Ur Barbiturates Screen Not Detected Ur Phencyclidine Scrn Not Detected Ur Amphetamines Screen Not Detected U Benzodiazepines Scrn POSITIVE H Urine Cocaine Screen Not Detected U Marijuana (THC) Screen Not Detected Ethyl Alcohol Influenza Type A (PCR) Influenza Type B (PCR) RSV RNA Qual (PCR) SARS-CoV-2 RNA (RT-PCR) 06/28/22 06/28/22 06/28/22 01:50 03:19 06:00 MCV MCH MCHC RDW Plt Count MPV Immature Gran % (Auto) Neut % (Auto) Lymph % (Auto) Childress % (Auto) Eos % (Auto) Baso % (Auto) Lymph # (Auto) Childress # (Auto) Eos # (Auto) Baso # (Auto) Abs Immat Gran (auto) Absolute Neuts (auto) Absolute Nucleated RBC Nucleated RBC % (auto) Smear Tech's Comments Anion Gap Estim Creat Clear Calc Estimated GFR Random Glucose Lactic Acid 2.8 H* Lactic Acid F/U @ 2Hr 2.8 H* Calcium Magnesium Total Bilirubin Direct Bilirubin AST ALT Alkaline Phosphatase C-Reactive Protein Total Protein Albumin Lipase Procalcitonin Urine Color Urine Appearance Urine pH Ur Specific Hutchinson Urine Protein Urine Glucose (UA) Urine Ketones Urine Blood Urine Nitrite Ur Leukocyte Esterase CSF Tube Number CSF Volume CSF Appearance CSF Color CSF WBC CSF RBC CSF Neutrophils CSF Lymphocytes CSF Monocytes % CSF Other Cells % CSF Appearance (b) CSF Glucose CSF Total Protein Urine Opiates Screen Urine Fentanyl Screen Ur Barbiturates Screen Ur Phencyclidine Scrn Ur Amphetamines Screen U Benzodiazepines Scrn Urine Cocaine Screen U Marijuana (THC) Screen Ethyl Alcohol Influenza Type A (PCR) NEGATIVE Influenza Type B (PCR) NEGATIVE RSV RNA Qual (PCR) NEGATIVE SARS-CoV-2 RNA (RT-PCR) NEGATIVE 06/28/22 06/28/22 06/28/22 06:35 06:35 06:35 MCV MCH MCHC RDW Plt Count MPV Immature Gran % (Auto) Neut % (Auto) Lymph % (Auto) Childress % (Auto) Eos % (Auto) Baso % (Auto) Lymph # (Auto) Childress # (Auto) Eos # (Auto) Baso # (Auto) Abs Immat Gran (auto) Absolute Neuts (auto) Absolute Nucleated RBC Nucleated RBC % (auto) Smear Tech's Comments Anion Gap Estim Creat Clear Calc Estimated GFR Random Glucose Lactic Acid Lactic Acid F/U @ 2Hr Calcium Magnesium Total Bilirubin Direct Bilirubin AST ALT Alkaline Phosphatase C-Reactive Protein Total Protein Albumin Lipase Procalcitonin Urine Color Urine Appearance Urine pH Ur Specific Hutchinson Urine Protein Urine Glucose (UA) Urine Ketones Urine Blood Urine Nitrite Ur Leukocyte Esterase CSF Tube Number 2 1 4 CSF Volume 1.0 1.0 CSF Appearance CLEAR CLEAR CSF Color COLORLESS COLORLESS CSF WBC 6 8 CSF RBC 1 1 CSF Neutrophils 7 6 CSF Lymphocytes 79 67 CSF Monocytes % 11 21 CSF Other Cells % 4 6 CSF Appearance (b) Clear, Colorless CSF Glucose 62 CSF Total Protein 29.6 Urine Opiates Screen Urine Fentanyl Screen Ur Barbiturates Screen Ur Phencyclidine Scrn Ur Amphetamines Screen U Benzodiazepines Scrn Urine Cocaine Screen U Marijuana (THC) Screen Ethyl Alcohol Influenza Type A (PCR) Influenza Type B (PCR) RSV RNA Qual (PCR) SARS-CoV-2 RNA (RT-PCR) Imaging Radiologist's Impressions: Impressions Abdomen Ultrasound 06/27/22 20:20 IMPRESSION: Unremarkable sonographic appearance of the gallbladder, common bile duct and right kidney. Chest X-Ray 06/28/22 03:22 IMPRESSION: No acute cardiopulmonary findings Abdomen/Pelvis CT 06/28/22 04:20 IMPRESSION: Subtle periportal edema in the liver, a nonspecific finding. This can be seen with multiplicity of conditions, most typically systemic hypervolemia. Viral hepatitis and cholangitis can also produce this appearance. Subtle retroperitoneal fat stranding with known numerous subcentimeter retroperitoneal lymph nodes, likely reactive in nature. This appearance could be due to chronic inflammation arising from the liver or pancreas amongst other possibilities. No specific findings of acute pancreatitis. Mild bladder wall thickening. Recommend correlation with urinalysis to exclude cystitis. Fleischner guidelines were followed. Head CT 06/28/22 05:29 IMPRESSION: No acute intracranial pathology. Assessment and Plan (1) Fever: Status: Acute (2) Elevated lactic acid level: Status: Acute (3) Vomiting: Status: Acute Plan 27-year-old gentleman recently diagnosed to have hepatitis-C and HIV currently residing [facility] prior history of IV heroin use sober time 5 years, history of occasional marijuana use, nicotine use disorder, no history of alcohol abuse presented to [facility] with 1 episode of vomiting and anxiety patient in the ER noted to be febrile workup showed normal WBC, your normal urinalysis, elevated LFTs and significantly elevated procalcitonin level is since no source of infection was found patient underwent LP fever and vomiting all symptoms resolved no recurrent fevers, normal WBC, spinal fluid with WBC of 8, normal glucose, normal protein, viral panel negative less likely meningitis normal UA, normal chest x-ray and normal abdominal CT, normal head CT, oral cavity with no infection noted to have significantly elevated procalcitonin of 97 will repeat level case discussed with ID she recommend azithromycin for atypical infection lactic acidosis due to mild dehydration due to GI loss resolved with IV fluid hypo magnesemia received 2 g of IV magnesium will follow labs history of HIV /hepatitis-C outpatient follow-up with ID elevated LFTs likely due to hepatitis-C likely contributing to nausea and vomiting recommend outpatient treatment history of substance abuse continue methadone tobacco use disorder continue nicotine gum, a smoking cessation advised Acute anxiety with history of anxiety not controlled on current medications, received 2 dosages of Ativan 2 mg still requesting for more medications, will obtain psych consult, resume all home medications including Atarax, Klonopin, Effexor DVT prophylaxis early ambulation in my clinical opinion patient will need 2 night inpatient stay due to fever elevated procalcitonin and elevated WBC in LP, and also for further evaluation and treatment for acute anxiety Quality Stroke Does the patient have a stroke diagnosis?: No VTE Prior VTE?: No VTE Risk Level:: Medical - low VTE Device Contraindication: Treatment Not Indicated VTE Drug Contraindication: Treatment Not Indicated
--- NOTE | 2022-06-28 09:18 | PC.NURSE ---
assumed care of this pt at 0700. pt sleeping at the time of assuming care. pt seen by Dr. Mattson.
--- NOTE | 2022-06-28 09:20 | PC.NURSE ---
Methadone verified by LILLY Collins at [facility] opiod treatment [place]. Last methadone dose 155 mg given 06/27/2022. Form faxed to pharmacy, Dr. Mattson notified.
[2022-06-28] MEDS: Lactated Ringers 1,000 ML 100 ML IVCONT (09:59)
[2022-06-28 10:11] LABS: Cryptococcus neoformans/gattii Not Detected (Not Detect.); Enterovirus Not Detected (Not Detect.); Escherichia coli K1 Not Detected (Not Detect.); Haemophilus influenzae Not Detected (Not Detect.); Herpes simplex virus 1 Not Detected (Not Detect.); Herpes simplex virus 2 Not Detected (Not Detect.); Human herpesvirus 6 Not Detected (Not Detect.); Human parechovirus Not Detected (Not Detect.); Listeria monocytogenes Not Detected (Not Detect.); Neisseria meningitidis Not Detected (Not Detect.); Streptococcus agalactiae Not Detected (Not Detect.); Streptococcus pneumoniae Not Detected (Not Detect.); Varicella zoster virus Not Detected (Not Detect.)
--- NOTE | 2022-06-28 10:25 | PC.NURSE ---
PT reports anxiety, refused atarax PO, states It's not going to do anything for me, I take clonidine at home . Pharmacist at bedside.
[2022-06-28] MEDS: Nicotine Polacrilex 2 MG GUM 4 MG BUCCAL ×3 (10:38→17:42)
--- NOTE | 2022-06-28 10:46 | PHA.MEDREC ---
Pharmacy Consult ? Medication Reconciliation Pharmacy has completed the medication reconciliation. [facility] states they take quetiapine 25mg bid, however no claim history to support.
[2022-06-28] MEDS: methADONE HCl 20 MG/2 ML ORAL.CONC 155 MG PO (10:57)
--- NOTE | 2022-06-28 11:15 | PC.NURSE ---
pt arguing and swearing, states I don't know why I'm being admitted, I will walk out if I'm being admitted for vomiting . this RN explained the reason for admission. pt replied I want to speak with the doctor . Dr. Mattson aware. pt moved to overflow unit.
--- NOTE | 2022-06-28 11:31 | PC.NURSE ---
Pt has refused his IV infusion. Pt is angery he is not getting the 'meds I am suppose to get.'
--- NOTE | 2022-06-28 11:43 | PC.NURSE ---
Pt is refusing to wear monitoring equipment at this time.
[2022-06-28] MEDS: Baclofen 20 MG TABLET PO ×2 (12:12→21:24)
[2022-06-28] MEDS: Venlafaxine HCl ER 150 MG CAP.ER.24H PO (12:12)
[2022-06-28] MEDS: clonazePAM 0.5 MG TABLET PO (12:12)
[2022-06-28 13:21] LABS: Procalcitonin 79.27 ng/mL
[2022-06-28 13:49] LABS: Adenovirus PCR Not Detected (Not Detect.); Bordetella parapertussis PCR Not Detected (Not Detect.); Bordetella pertussis PCR Not Detected (Not Detect.); Chlamydia pneumoniae PCR Not Detected (Not Detect.); Coronavirus 229E PCR Not Detected (Not Detect.); Coronavirus HKU1 PCR Not Detected (Not Detect.); Coronavirus NL63 PCR Not Detected (Not Detect.); Coronavirus OC43 PCR Not Detected (Not Detect.); Human metapneumovirus PCR Not Detected (Not Detect.); Influenza A PCR Not Detected (Not Detect.); Influenza B PCR Not Detected (Not Detect.); Mycoplasma pneumoniae PCR Not Detected (Not Detect.); Parainfluenza 1 PCR Not Detected (Not Detect.); Parainfluenza 2 PCR Not Detected (Not Detect.); Parainfluenza 3 PCR Not Detected (Not Detect.); Parainfluenza 4 PCR Not Detected (Not Detect.); RSV PCR Not Detected (Not Detect.); Rhino/Enterovirus PCR Not Detected (Not Detect.); SARS-CoV-2 PCR Not Detected (Not Detect.)
[2022-06-28] MEDS: Gabapentin 400 MG CAPSULE 800 MG PO ×2 (15:44→21:24)
[2022-06-28] MEDS: cloNIDine HCL 0.1 MG TABLET PO (21:24)
[2022-06-28] MEDS: 0.9 % Sodium Chloride Flush 3 ML SYRINGE IVFLUSH (21:24)
[2022-06-28] MEDS: diphenhydrAMINE HCL 25 MG CAPSULE 50 MG PO (21:24)
[2022-06-29 03:26] VITALS: BP 117/56; PULSE 89; RESP 14; TEMP 36.3; O2SAT 92
[2022-06-29 07:15] VITALS: BP 105/61; PULSE 89; RESP 20; TEMP 36.6; O2SAT 96
[2022-06-29] MEDS: Azithromycin 500 MG in 0.9 % Sodium Chloride 250 ML 125 MG IV (08:54)
[2022-06-29] MEDS: methADONE HCl 20 MG/2 ML ORAL.CONC 155 MG PO (08:55)
[2022-06-29] MEDS: 0.9 % Sodium Chloride Flush 3 ML SYRINGE IVFLUSH (08:57)
[2022-06-29] MEDS: Baclofen 20 MG TABLET PO (08:57)
[2022-06-29] MEDS: Venlafaxine HCl ER 150 MG CAP.ER.24H PO (08:57)
[2022-06-29] MEDS: Gabapentin 400 MG CAPSULE 800 MG PO ×2 (08:57→14:07)
[2022-06-29 11:33] VITALS: BP 133/71; PULSE 88; RESP 20; TEMP 36.6; O2SAT 96
--- NOTE | 2022-06-29 12:37 | PM.PSYCN ---
History of Present Illness Date of Service: 06/29/22 Chief Complaint: Vomiting Reason for Consult: medication Requesting physician: Reina Mattson Discussed with referring provider: Yes Sources of Information: patient interviewed, chart reviewed and crisis/core team assessment reviewed HPI Narrative: Bobby is a 27 y.o. who carries a dx of polysubstance use disorder, ADRIANNA, and MDD recurrent. Pt has past med hx of HIV, Hepatitis C. He [place] [facility] [place] [facility] x 5 months due to symptoms of nausea and vomiting. He was admitted [place] [facility] due to fever, elevated procalcitonin, and elevated WBC in LP.? Psych consult placed due to pt requesting medication for anxiety. Currently on venlafaxine 150 mg daily, clonidine 0.1 mg TID PRN, and klonopin 0.5 mg QD PRN for anxiety. I spoke with pt this evening. Says he was on klonopin for 3.5 years and felt stable but asked to come off it. Says this was a ?horrible idea? and his anxiety ?went crazy.? He attributes this to his subsequent relapse. States the psychiatrist who works for [facility] will not increase his klonopin above 0.5 mg daily and he is asking for a dose increase. Has an intake with Dr. Ramsey at [facility] on 07/21/22 but does not feel he can wait that long. Pt insists klonopin is the only medication effective for his anxiety, denies benefit on buspar, Seroquel, thorazine, or increased doses of Effexor. Says klonopin makes him ?focused and motivated.? He denies depression, says his mood is ?more like frustrated and aggravated.? Complains of anxiety, ?my head is spinning.? When T/W informed him it is not appropriate to increase klonopin at this time, as it is a controlled substance, pt then said he is at risk of relapsing without more klonopin. He declines meeting with recovery services. Medical Evaluation Reviewed: Yes Diagnostics Vital Signs (24Hr): Vital Signs - 24 hr 06/28/22 20:00 06/28/22 23:18 06/29/22 03:26 Temperature 97.5 F 99.2 F 97.4 F Pulse Rate 133 H 132 H 89 Respiratory Rate 18 16 14 Blood Pressure 130/83 143/88 H 117/56 L Pulse Oximetry 95 94 92 Oxygen Delivery Method Room Air Room Air Room Air 06/29/22 07:15 06/29/22 11:33 Temperature 97.9 F 97.9 F Pulse Rate 89 88 Respiratory Rate 20 20 Blood Pressure 105/61 133/71 Pulse Oximetry 96 96 Oxygen Delivery Method Room Air Room Air BMI result Body Mass Index 30.2 Labs Results: 06/27/22 21:46 06/29/22 14:21 Labs: Laboratory Results - last 48 hr 06/27/22 06/27/22 06/27/22 20:54 21:46 21:46 WBC 5.5 RBC 4.76 Hgb 13.0 L Hct 41.0 L MCV 86.1 MCH 27.3 MCHC 31.7 RDW 14.9 Plt Count 157 L MPV 10.5 Immature Gran % (Auto) 0.4 Neut % (Auto) 92.6 H Lymph % (Auto) 5.5 L [place] % (Auto) 1.1 L Eos % (Auto) 0.4 Baso % (Auto) 0.0 Lymph # (Auto) 0.3 L [place] # (Auto) 0.1 Eos # (Auto) 0.0 Baso # (Auto) 0.0 Abs Immat Gran (auto) 0.02 Absolute Neuts (auto) 5.1 Absolute Nucleated RBC 0.000 Nucleated RBC % (auto) 0.0 Smear Tech's Comments VERIFIED Sodium 141 Potassium 4.9 Chloride 103 Carbon Dioxide 23 Anion Gap 20 BUN 22 H Creatinine 1.38 Estim Creat Clear Calc 93.8 Estimated GFR > 60 Random Glucose 87 Lactic Acid Lactic Acid F/U @ 2Hr Lactic Acid F/U @ 4Hr Calcium 9.7 Magnesium 1.4 L* Total Bilirubin 1.6 H Direct Bilirubin 1.2 H AST 285 H ALT 201 H Alkaline Phosphatase 175 H C-Reactive Protein 0.97 H Total Protein 7.9 Albumin 4.1 Lipase 17 Procalcitonin Urine Color Urine Appearance Urine pH Ur Specific [place] Urine Protein Urine Glucose (UA) Urine Ketones Urine Blood Urine Nitrite Ur Leukocyte Esterase CSF Tube Number CSF Volume CSF Appearance CSF Color CSF WBC CSF RBC CSF Neutrophils CSF Lymphocytes CSF Monocytes % CSF Other Cells % CSF Appearance (b) CSF Glucose CSF Total Protein CSF C.neoform/gat PCR CSF CMV DNA (PCR) CSF Enterovirus (PCR) CSF E. coli K1 (PCR) CSF H. influenzae (PCR) CSF HSV I (PCR) CSF HSV II (PCR) CSF HHV 6 (PCR) CSF L.monocytogenes PCR CSF N. meningitidis PCR CSF Parechovirus (PCR) CSF S. agalactiae (PCR) CSF S. pneumoniae (PCR) CSF VZV (PCR) Urine Opiates Screen Urine Fentanyl Screen Ur Barbiturates Screen Ur Phencyclidine Scrn Ur Amphetamines Screen U Benzodiazepines Scrn Urine Cocaine Screen U Marijuana (THC) Screen Ethyl Alcohol Cancelled < 10 Respiratory Panel [place] Adenovirus (Rapid PCR) B.pert (TEM-PCR) B.parapertussis DNA PCR C. pneumoniae DNA (PCR) Coronavirus OC43 (PCR) Coronavirus HKU1 (PCR) Coronavirus 229E (PCR) Coronavirus NL63 (PCR) Human Metapneumovir PCR Influenza A (RT-PCR) Influenza Type A (PCR) Influenza B (RT-PCR) Influenza Type B (PCR) M. pneumoniae (PCR) Parainfluenza 1 (PCR) Parainfluenza 2 (PCR) Parainfluenza 3 (PCR) Parainfluenza 4 (PCR) RSV (PCR) RSV RNA Qual (PCR) Entero/Rhino (PCR) SARS-CoV-2 RNA (RT-PCR) 06/27/22 06/27/22 06/27/22 21:46 21:46 21:46 WBC RBC Hgb Hct MCV MCH MCHC RDW Plt Count MPV Immature Gran % (Auto) Neut % (Auto) Lymph % (Auto) [place] % (Auto) Eos % (Auto) Baso % (Auto) Lymph # (Auto) [place] # (Auto) Eos # (Auto) Baso # (Auto) Abs Immat Gran (auto) Absolute Neuts (auto) Absolute Nucleated RBC Nucleated RBC % (auto) Smear Tech's Comments Sodium Potassium Chloride Carbon Dioxide Anion Gap BUN Creatinine Estim Creat Clear Calc Estimated GFR Random Glucose Lactic Acid Lactic Acid F/U @ 2Hr Lactic Acid F/U @ 4Hr Calcium Magnesium Total Bilirubin Direct Bilirubin AST ALT Alkaline Phosphatase C-Reactive Protein Total Protein Albumin Lipase Procalcitonin 97.23 Urine Color Dark Yellow Urine Appearance Clear Urine pH 5.5 Ur Specific [place] >= 1.030 H Urine Protein Negative Urine Glucose (UA) Negative Urine Ketones Trace Urine Blood Negative Urine Nitrite Negative Ur Leukocyte Esterase Negative CSF Tube Number CSF Volume CSF Appearance CSF Color CSF WBC CSF RBC CSF Neutrophils CSF Lymphocytes CSF Monocytes % CSF Other Cells % CSF Appearance (b) CSF Glucose CSF Total Protein CSF C.neoform/gat PCR CSF CMV DNA (PCR) CSF Enterovirus (PCR) CSF E. coli K1 (PCR) CSF H. influenzae (PCR) CSF HSV I (PCR) CSF HSV II (PCR) CSF HHV 6 (PCR) CSF L.monocytogenes PCR CSF N. meningitidis PCR CSF Parechovirus (PCR) CSF S. agalactiae (PCR) CSF S. pneumoniae (PCR) CSF VZV (PCR) Urine Opiates Screen Not Detected Urine Fentanyl Screen Not Detected Ur Barbiturates Screen Not Detected Ur Phencyclidine Scrn Not Detected Ur Amphetamines Screen Not Detected U Benzodiazepines Scrn POSITIVE H Urine Cocaine Screen Not Detected U Marijuana (THC) Screen Not Detected Ethyl Alcohol Respiratory Panel [place] Adenovirus (Rapid PCR) B.pert (TEM-PCR) B.parapertussis DNA PCR C. pneumoniae DNA (PCR) Coronavirus OC43 (PCR) Coronavirus HKU1 (PCR) Coronavirus 229E (PCR) Coronavirus NL63 (PCR) Human Metapneumovir PCR Influenza A (RT-PCR) Influenza Type A (PCR) Influenza B (RT-PCR) Influenza Type B (PCR) M. pneumoniae (PCR) Parainfluenza 1 (PCR) Parainfluenza 2 (PCR) Parainfluenza 3 (PCR) Parainfluenza 4 (PCR) RSV (PCR) RSV RNA Qual (PCR) Entero/Rhino (PCR) SARS-CoV-2 RNA (RT-PCR) 06/28/22 06/28/22 06/28/22 01:50 03:19 06:00 WBC RBC Hgb Hct MCV MCH MCHC RDW Plt Count MPV Immature Gran % (Auto) Neut % (Auto) Lymph % (Auto) [place] % (Auto) Eos % (Auto) Baso % (Auto) Lymph # (Auto) [place] # (Auto) Eos # (Auto) Baso # (Auto) Abs Immat Gran (auto) Absolute Neuts (auto) Absolute Nucleated RBC Nucleated RBC % (auto) Smear Tech's Comments Sodium Potassium Chloride Carbon Dioxide Anion Gap BUN Creatinine Estim Creat Clear Calc Estimated GFR Random Glucose Lactic Acid 2.8 H* Lactic Acid F/U @ 2Hr 2.8 H* Lactic Acid F/U @ 4Hr Calcium Magnesium Total Bilirubin Direct Bilirubin AST ALT Alkaline Phosphatase C-Reactive Protein Total Protein Albumin Lipase Procalcitonin Urine Color Urine Appearance Urine pH Ur Specific [place] Urine Protein Urine Glucose (UA) Urine Ketones Urine Blood Urine Nitrite Ur Leukocyte Esterase CSF Tube Number CSF Volume CSF Appearance CSF Color CSF WBC CSF RBC CSF Neutrophils CSF Lymphocytes CSF Monocytes % CSF Other Cells % CSF Appearance (b) CSF Glucose CSF Total Protein CSF C.neoform/gat PCR CSF CMV DNA (PCR) CSF Enterovirus (PCR) CSF E. coli K1 (PCR) CSF H. influenzae (PCR) CSF HSV I (PCR) CSF HSV II (PCR) CSF HHV 6 (PCR) CSF L.monocytogenes PCR CSF N. meningitidis PCR CSF Parechovirus (PCR) CSF S. agalactiae (PCR) CSF S. pneumoniae (PCR) CSF VZV (PCR) Urine Opiates Screen Urine Fentanyl Screen Ur Barbiturates Screen Ur Phencyclidine Scrn Ur Amphetamines Screen U Benzodiazepines Scrn Urine Cocaine Screen U Marijuana (THC) Screen Ethyl Alcohol Respiratory Panel [place] Adenovirus (Rapid PCR) B.pert (TEM-PCR) B.parapertussis DNA PCR C. pneumoniae DNA (PCR) Coronavirus OC43 (PCR) Coronavirus HKU1 (PCR) Coronavirus 229E (PCR) Coronavirus NL63 (PCR) Human Metapneumovir PCR Influenza A (RT-PCR) Influenza Type A (PCR) NEGATIVE Influenza B (RT-PCR) Influenza Type B (PCR) NEGATIVE M. pneumoniae (PCR) Parainfluenza 1 (PCR) Parainfluenza 2 (PCR) Parainfluenza 3 (PCR) Parainfluenza 4 (PCR) RSV (PCR) RSV RNA Qual (PCR) NEGATIVE Entero/Rhino (PCR) SARS-CoV-2 RNA (RT-PCR) NEGATIVE 06/28/22 06/28/22 06/28/22 06:35 06:35 06:35 WBC RBC Hgb Hct MCV MCH MCHC RDW Plt Count MPV Immature Gran % (Auto) Neut % (Auto) Lymph % (Auto) [place] % (Auto) Eos % (Auto) Baso % (Auto) Lymph # (Auto) [place] # (Auto) Eos # (Auto) Baso # (Auto) Abs Immat Gran (auto) Absolute Neuts (auto) Absolute Nucleated RBC Nucleated RBC % (auto) Smear Tech's Comments Sodium Potassium Chloride Carbon Dioxide Anion Gap BUN Creatinine Estim Creat Clear Calc Estimated GFR Random Glucose Lactic Acid Lactic Acid F/U @ 2Hr Lactic Acid F/U @ 4Hr Calcium Magnesium Total Bilirubin Direct Bilirubin AST ALT Alkaline Phosphatase C-Reactive Protein Total Protein Albumin Lipase Procalcitonin Urine Color Urine Appearance Urine pH Ur Specific [place] Urine Protein Urine Glucose (UA) Urine Ketones Urine Blood Urine Nitrite Ur Leukocyte Esterase CSF Tube Number 2 1 CSF Volume 1.0 CSF Appearance CLEAR CSF Color COLORLESS CSF WBC 6 CSF RBC 1 CSF Neutrophils 7 CSF Lymphocytes 79 CSF Monocytes % 11 CSF Other Cells % 4 CSF Appearance (b) Clear, Colorless CSF Glucose 62 CSF Total Protein 29.6 CSF C.neoform/gat PCR Not Detected CSF CMV DNA (PCR) Not Detected CSF Enterovirus (PCR) Not Detected CSF E. coli K1 (PCR) Not Detected CSF H. influenzae (PCR) Not Detected CSF HSV I (PCR) Not Detected CSF HSV II (PCR) Not Detected CSF HHV 6 (PCR) Not Detected CSF L.monocytogenes PCR Not Detected CSF N. meningitidis PCR Not Detected CSF Parechovirus (PCR) Not Detected CSF S. agalactiae (PCR) Not Detected CSF S. pneumoniae (PCR) Not Detected CSF VZV (PCR) Not Detected Urine Opiates Screen Urine Fentanyl Screen Ur Barbiturates Screen Ur Phencyclidine Scrn Ur Amphetamines Screen U Benzodiazepines Scrn Urine Cocaine Screen U Marijuana (THC) Screen Ethyl Alcohol Respiratory Panel [place] Adenovirus (Rapid PCR) B.pert (TEM-PCR) B.parapertussis DNA PCR C. pneumoniae DNA (PCR) Coronavirus OC43 (PCR) Coronavirus HKU1 (PCR) Coronavirus 229E (PCR) Coronavirus NL63 (PCR) Human Metapneumovir PCR Influenza A (RT-PCR) Influenza Type A (PCR) Influenza B (RT-PCR) Influenza Type B (PCR) M. pneumoniae (PCR) Parainfluenza 1 (PCR) Parainfluenza 2 (PCR) Parainfluenza 3 (PCR) Parainfluenza 4 (PCR) RSV (PCR) RSV RNA Qual (PCR) Entero/Rhino (PCR) SARS-CoV-2 RNA (RT-PCR) 06/28/22 06/28/22 06/28/22 06:35 09:35 10:20 WBC RBC Hgb Hct MCV MCH MCHC RDW Plt Count MPV Immature Gran % (Auto) Neut % (Auto) Lymph % (Auto) [place] % (Auto) Eos % (Auto) Baso % (Auto) Lymph # (Auto) [place] # (Auto) Eos # (Auto) Baso # (Auto) Abs Immat Gran (auto) Absolute Neuts (auto) Absolute Nucleated RBC Nucleated RBC % (auto) Smear Tech's Comments Sodium Potassium Chloride Carbon Dioxide Anion Gap BUN Creatinine Estim Creat Clear Calc Estimated GFR Random Glucose Lactic Acid Lactic Acid F/U @ 2Hr Lactic Acid F/U @ 4Hr 1.0 Calcium Magnesium Total Bilirubin Direct Bilirubin AST ALT Alkaline Phosphatase C-Reactive Protein Total Protein Albumin Lipase Procalcitonin Urine Color Urine Appearance Urine pH Ur Specific [place] Urine Protein Urine Glucose (UA) Urine Ketones Urine Blood Urine Nitrite Ur Leukocyte Esterase CSF Tube Number 4 CSF Volume 1.0 CSF Appearance CLEAR CSF Color COLORLESS CSF WBC 8 CSF RBC 1 CSF Neutrophils 6 CSF Lymphocytes 67 CSF Monocytes % 21 CSF Other Cells % 6 CSF Appearance (b) CSF Glucose CSF Total Protein CSF C.neoform/gat PCR CSF CMV DNA (PCR) CSF Enterovirus (PCR) CSF E. coli K1 (PCR) CSF H. influenzae (PCR) CSF HSV I (PCR) CSF HSV II (PCR) CSF HHV 6 (PCR) CSF L.monocytogenes PCR CSF N. meningitidis PCR CSF Parechovirus (PCR) CSF S. agalactiae (PCR) CSF S. pneumoniae (PCR) CSF VZV (PCR) Urine Opiates Screen Urine Fentanyl Screen Ur Barbiturates Screen Ur Phencyclidine Scrn Ur Amphetamines Screen U Benzodiazepines Scrn Urine Cocaine Screen U Marijuana (THC) Screen Ethyl Alcohol Respiratory Panel [place] See Note Adenovirus (Rapid PCR) Not Detected B.pert (TEM-PCR) Not Detected B.parapertussis DNA PCR Not Detected C. pneumoniae DNA (PCR) Not Detected Coronavirus OC43 (PCR) Not Detected Coronavirus HKU1 (PCR) Not Detected Coronavirus 229E (PCR) Not Detected Coronavirus NL63 (PCR) Not Detected Human Metapneumovir PCR Not Detected Influenza A (RT-PCR) Not Detected Influenza Type A (PCR) Influenza B (RT-PCR) Not Detected Influenza Type B (PCR) M. pneumoniae (PCR) Not Detected Parainfluenza 1 (PCR) Not Detected Parainfluenza 2 (PCR) Not Detected Parainfluenza 3 (PCR) Not Detected Parainfluenza 4 (PCR) Not Detected RSV (PCR) Not Detected RSV RNA Qual (PCR) Entero/Rhino (PCR) Not Detected SARS-CoV-2 RNA (RT-PCR) Not Detected 06/28/22 12:15 WBC RBC Hgb Hct MCV MCH MCHC RDW Plt Count MPV Immature Gran % (Auto) Neut % (Auto) Lymph % (Auto) [place] % (Auto) Eos % (Auto) Baso % (Auto) Lymph # (Auto) [place] # (Auto) Eos # (Auto) Baso # (Auto) Abs Immat Gran (auto) Absolute Neuts (auto) Absolute Nucleated RBC Nucleated RBC % (auto) Smear Tech's Comments Sodium Potassium Chloride Carbon Dioxide Anion Gap BUN Creatinine Estim Creat Clear Calc Estimated GFR Random Glucose Lactic Acid Lactic Acid F/U @ 2Hr Lactic Acid F/U @ 4Hr Calcium Magnesium Total Bilirubin Direct Bilirubin AST ALT Alkaline Phosphatase C-Reactive Protein Total Protein Albumin Lipase Procalcitonin 79.27 Urine Color Urine Appearance Urine pH Ur Specific [place] Urine Protein Urine Glucose (UA) Urine Ketones Urine Blood Urine Nitrite Ur Leukocyte Esterase CSF Tube Number CSF Volume CSF Appearance CSF Color CSF WBC CSF RBC CSF Neutrophils CSF Lymphocytes CSF Monocytes % CSF Other Cells % CSF Appearance (b) CSF Glucose CSF Total Protein CSF C.neoform/gat PCR CSF CMV DNA (PCR) CSF Enterovirus (PCR) CSF E. coli K1 (PCR) CSF H. influenzae (PCR) CSF HSV I (PCR) CSF HSV II (PCR) CSF HHV 6 (PCR) CSF L.monocytogenes PCR CSF N. meningitidis PCR CSF Parechovirus (PCR) CSF S. agalactiae (PCR) CSF S. pneumoniae (PCR) CSF VZV (PCR) Urine Opiates Screen Urine Fentanyl Screen Ur Barbiturates Screen Ur Phencyclidine Scrn Ur Amphetamines Screen U Benzodiazepines Scrn Urine Cocaine Screen U Marijuana (THC) Screen Ethyl Alcohol Respiratory Panel [place] Adenovirus (Rapid PCR) B.pert (TEM-PCR) B.parapertussis DNA PCR C. pneumoniae DNA (PCR) Coronavirus OC43 (PCR) Coronavirus HKU1 (PCR) Coronavirus 229E (PCR) Coronavirus NL63 (PCR) Human Metapneumovir PCR Influenza A (RT-PCR) Influenza Type A (PCR) Influenza B (RT-PCR) Influenza Type B (PCR) M. pneumoniae (PCR) Parainfluenza 1 (PCR) Parainfluenza 2 (PCR) Parainfluenza 3 (PCR) Parainfluenza 4 (PCR) RSV (PCR) RSV RNA Qual (PCR) Entero/Rhino (PCR) SARS-CoV-2 RNA (RT-PCR) Imaging Radiology Impressions: ITS Impressions Abdomen Ultrasound 06/27/22 20:20 IMPRESSION: Unremarkable sonographic appearance of the gallbladder, common bile duct and right kidney. Chest X-Ray 06/28/22 03:22 IMPRESSION: No acute cardiopulmonary findings Abdomen/Pelvis CT 06/28/22 04:20 IMPRESSION: Subtle periportal edema in the liver, a nonspecific finding. This can be seen with multiplicity of conditions, most typically systemic hypervolemia. Viral hepatitis and cholangitis can also produce this appearance. Subtle retroperitoneal fat stranding with known numerous subcentimeter retroperitoneal lymph nodes, likely reactive in nature. This appearance could be due to chronic inflammation arising from the liver or pancreas amongst other possibilities. No specific findings of acute pancreatitis. Mild bladder wall thickening. Recommend correlation with urinalysis to exclude cystitis. Fleischner guidelines were followed. Head CT 06/28/22 05:29 IMPRESSION: No acute intracranial pathology. Mental Status Exam Mental Status Exam Narrative: A&O. Overweight, casual attire. Poor eye contact, inattentive. No Tics or Tremors. No abnormal involuntary movements. In behavioral control, guarded, perseverative on klonopin script. Non-pressured speech, spontaneous with regular rate and rhythm, normal volume and prosody. No prolonged speech latency or dysarthria. Mood is ?irritable,? affect is anxious. Denies SI/SIB/HI upon inquiry. Denies A/VH or delusional thought content. Thoughts are coherent, organized. No known cognitive or memory impairment. Insight/ Judgment limited. Medications Medications Current Medications Acetaminophen (Acetaminophen 325 Mg Tablet) 650 mg PO Q6H PRN PRN Reason: Pain, Mild (Pain Scale 1-3) Last Admin: 06/28/22 17:43 Dose: 650 mg Baclofen (Baclofen 20 Mg Tablet) 20 mg PO BID LAURA Last Admin: 06/29/22 08:57 Dose: 20 mg Benzonatate (Benzonatate 100 Mg Capsule) 100 mg PO TID PRN PRN Reason: Cough Clonazepam (Clonazepam 0.5 Mg Tablet) 0.5 mg PO DAILY PRN PRN Reason: panic attack Last Admin: 06/28/22 12:12 Dose: 0.5 mg Clonidine HCl (Clonidine Hcl 0.1 Mg Tablet) 0.1 mg PO TID PRN; Protocol PRN Reason: Anxiety/Insomnia Last Admin: 06/28/22 21:24 Dose: 0.1 mg Diphenhydramine HCl (Diphenhydramine Hcl 25 Mg Capsule) 50 mg PO BEDTIME [facility] Last Admin: 06/28/22 21:24 Dose: 50 mg Gabapentin (Gabapentin 400 Mg Capsule) 800 mg PO TID [facility] Last Admin: 06/29/22 08:57 Dose: 800 mg Lactated Ringer's (Lr) 1,000 mls @ 100 mls/hr IVCONT .Q10H [facility] Last Admin: 06/29/22 05:08 Dose: Not Given Azithromycin 500 mg/ Sodium (Chloride) 250 mls @ 125 mls/hr IV Q24H [facility] Last Infusion: 06/29/22 11:14 Dose: Infused Methadone HCl (Methadone Hcl 20 Mg/2 Ml Oral.Conc) 155 mg PO DAILY [facility] Last Admin: 06/29/22 08:55 Dose: 155 mg Nicotine Polacrilex (Nicotine Polacrilex 2 Mg Gum) 4 mg BUCCAL Q2H PRN PRN Reason: Nicotine Cravings Last Admin: 06/28/22 17:42 Dose: 4 mg Nicotine Polacrilex (Nicotine Polacrilex 2 Mg Gum) 2 mg BUCCAL Q1H PRN PRN Reason: Nicotine Cravings Ondansetron HCl (Ondansetron Hcl 4 Mg/2 Ml Vial) 4 mg IVPUSH Q8H PRN PRN Reason: Nausea and Vomiting Pharmacy Consult (Consult Rx Vancomycin Dosing) 1 each MISCELLANE DAILY PRN PRN Reason: Consult order Pharmacy Consult (Consult Rx Perform Med Rec) 1 each MISCELLANE ONCE PRN PRN Reason: Consult order Sodium Chloride (0.9 % Sodium Chloride Flush 3 Ml Syringe) 3 ml IVFLUSH QSHIFT [facility] Last Admin: 06/29/22 08:57 Dose: 3 ml Venlafaxine HCl (Venlafaxine Hcl Er 150 Mg Cap.Er.24h) 150 mg PO DAILY [facility] Last Admin: 06/29/22 08:57 Dose: 150 mg Allergies Allergies Allergy/AdvReac Type Severity Reaction Status Date / Time Penicillins Allergy Vomiting Verified 06/28/22 03:27 Assessment & Plan Assessment & Plan (1) ADRIANNA (generalized anxiety disorder): Status: Acute Code(s): F41.1 - Generalized anxiety disorder (2) Polysubstance abuse: Status: Acute Code(s): F19.10 - Other psychoactive substance abuse, uncomplicated Plan Plan: Pt only interested in T/W increasing his klonopin dose above 0.5 mg QD PRN, discussed that this is not appropriate for a psych consult. Pt does not meet criteria for inpatient psych admission. No further recommendations, as pt is declining other med adjustments for anxiety. I have shared this with Dr. Mattson Thank you for this consultation. If you have any questions or concerns, please do not hesitate to contact psychiatry service. I spent minutes with the patient and/or on the patient floor today, greater than?50% of which was spent counseling/coordinating care. Patient educated on: diagnosis, medication risk/benefits and therapeutic strategies
[2022-06-29] MEDS: clonazePAM 0.5 MG TABLET PO (14:07)
--- NOTE | 2022-06-29 14:10 | PM.DS ---
DS: Providers Provider Date of Service: 06/30/22 Date of admission: 06/28/22 08:33 Primary care physician: None Physician Consults: 06/28/22 00:41 Consult to Care Team Stat Comment: Reason for consultation: anxiety, depression 06/28/22 08:31 Consult to Infectious Diseases Routine Consulting Provider: Lamar Chiang Reason for consultation: fever LP with wbc 8 Has provider been notified: No 06/28/22 08:32 Consult to Psychiatry Routine Consulting Provider: Psychiatry,[facility] Reason for consultation: anxiety Has provider been notified: No DS: Diagnosis Discharge Diagnosis (1) Fever: Status: Acute (2) Elevated lactic acid level: Status: Acute (3) Vomiting: Status: Acute DS: Summary Hospital Course Hospital Course: Chief Complaint: Vomiting ?27-year-old gentleman currently residing in [facility] for last 5 months with past medical history significant for recently diagnosed HIV and hepatitis-C has not received treatment for PAD presented to [facility] [place] due to symptoms of nausea and vomiting, he had 1 episode of large vomitus non bloody without associated abdominal pain no diarrhea no other inmates with similar symptoms no outside food he has had multiple episodes of vomiting in the past his last marijuana use was 2 months ago patient complaining of worsening anxiety feels current medications are not helping to control his anxiety only Klonopin works, he is requesting for psychiatric evaluation patient few days ago diagnosed to have left-sided to pain for which she took penicillin for 3 days, currently denies tootache , denies fever chills rigors, in the emergency room patient was noted to have fever of 101.3, checks x-ray showed no acute abnormality, CT abdomen and pelvis showed subtle periportal edema in the liver nonspecific finding, subtle retroperitoneal fat stranding with known numerous subcentimeter retroperitoneal lymph nodes likely reactive, arising from chronic inflammation from liver or pancreas among other possibilities no acute pancreatitis was noted mild bladder wall thickening was noted, abdominal ultrasound showed unremarkable gallbladder, common bile duct and right kidney, urinalysis is unremarkable, CT head showed no acute abnormality, CBC normal, platelet 157, urine toxicology positive for benzo, patient is on Klonopin, influenza a, RSV and COVID negative, ?he was noted to have a low magnesium of 1.4, elevated AST, ALT, CRP 0.97 and elevated procalcitonin of 97.23 since is no source of infection found for fever patient underwent LP that showed? WBC of 8, 1+ RBC, normal blood sugar and protein, patient noted to be very anxious in the emergency room required couple dosages of Ativan also received IV vancomycin, ceftriaxone and now being admitted to [facility] [place] for continued monitoring and treatment for worsening anxiety, vomiting and fever. hospital course 27-year-old gentleman recently diagnosed to have hepatitis-C and HIV currently residing at [facility] prior history of IV heroin use sober time 5 years, history of occasional marijuana use, nicotine use disorder, no history of alcohol abuse presented to [facility] [place] with 1 episode of vomiting and anxiety patient in the ER noted to be febrile workup showed normal WBC, your normal urinalysis, elevated LFTs and significantly elevated procalcitonin level is since no source of infection was found patient underwent LP ?fever and vomiting Admitted to medical floor, all symptoms resolved no recurrent fevers, normal WBC, spinal fluid with WBC of 8, normal glucose, normal protein, viral panel negative less likely meningitis ? normal UA, normal chest x-ray and normal abdominal CT, normal head CT, oral cavity with no infection,? noted to have significantly elevated procalcitonin of 97 repeat level remains elevated in 70s likely due to underlying history of HIV and hep C since patient has no other underlying history of malignancy, tumors explaining high procalcitonin, a spinal fluid culture came back negative patient remained hemodynamically stable case discussed with ID she recommend azithromycin for atypical infection, but since patient recently took penicillin and not willing to take antibiotics will not prescribe any further medications. ? ?lactic acidosis due to mild dehydration? due to GI loss resolved with IV fluid ?hypomagnesemia? received 2 g of IV magnesium repeat level is normal. to ?history of HIV /hepatitis-C outpatient follow-up with ID ? elevated LFTs likely due to hepatitis-C likely contributing to nausea and vomiting recommend outpatient treatment ?history of substance abuse continue methadone ?tobacco use disorder continue nicotine gum, a smoking cessation advised ?Acute anxiety with history of anxiety on multiple medications seen by psych they recommend to continue current medications and outpatient follow-up with primary therapy, since patient is comfortable with the plan he is being discharged home and has an outpatient follow-up with his therapist in 1 week. Time Spent with Patient Time attestation: Total time spent providing and/or coordinating discharge services: Discharge coordination time: Greater than 30 minutes Quality: Safe Use of Opioids Does Pt have an Active Cancer Diagnosis on the Problem List?: No Quality: Stroke Does the patient have a stroke diagnosis?: No Physical Exam Vital Signs: Vital Signs: Last Vital Signs Temp 97.9 F 06/29/22 11:33 Pulse 88 06/29/22 11:33 Resp 20 06/29/22 11:33 BP 133/71 06/29/22 11:33 Pulse Ox 96 06/29/22 11:33 O2 Del Method 06/29/22 11:33 BMI result Body Mass Index 30.2 Const: Other: General? awake rhonda rt x3, resting com fortably in no acu te distress.? HEEN T? pupils equal ro und reactive to li ght and accommodat ion oral cavity mi ssing teeth, denta l caries no rednes s no swelling, no tenderness Neck? s upple CVS? regular rate rhythm, Resp iratory lungs dhruv r to auscultation, no respiratory di stress, no wheeze, no rhonchi. Gastr ointestinal abdome n soft, nontender, bowel sounds petty ble, no guarding , no rigidity. Extr emities no edema. Neuro nonfocal pat ient moving all 4 extremity speech c lear. Skin no rash psych appropriate affect DS: Data Data Completed and Pending Labs on day of discharge: Preliminary micro results at discharge 06/28/22 06:35 CSF Culture - Preliminary Cerebrospinal Fluid No growth after 1 day 06/28/22 03:53 Blood Culture - Preliminary Blood - Venous No growth after 24 hours. 06/28/22 03:19 Blood Culture - Preliminary Blood - Venous No growth after 24 hours. Discharge Plan Discharge Anticipated Discharge Date/Time: 06/29/22 14:02 Patient Disposition: Home, Self-Care Discharge Diagnosis: fever and vomiting lactic acidosis hypo magnesemia Referrals: Physician,None [Primary Care Provider] - 1 Week Discharge Medications: Continued clonidine HCl 0.1 mg tablet 1 tab PO TID PRN (Reason: Anxiety/Insomnia) venlafaxine 75 mg capsule,extended release 24hr 2 cap PO DAILY diphenhydramine HCl [Banophen] 50 mg capsule 1 cap PO BEDTIME clonazepam 0.5 mg tablet 1 tab PO DAILY PRN (Reason: panic attack) baclofen 20 mg tablet 1 tab PO BID gabapentin 800 mg tablet 1 tab PO TID nicotine (polacrilex) 2 mg mini lozenge 2 mg PO Q1H PRN (Reason: Smoking Cessation) Rx Instructions: not to exceed 20 lozenges per day methadone 10 mg/mL Concentrate 155 mg PO DAILY quetiapine 25 mg Tablet 25 mg PO BID Discharge Orders: Discharge Order (Routine); Ordered 06/29/22 Ordered By: Reina Mattson Diet: Advance to usual diet Activity on Discharge: As tolerated Stand Alone Forms: Patient Portal Discharge page Care Plan Goals: fever and vomiting resolved needs outpatient follow-up with Gastroenterology and Infectious Disease for hep C and HIV return to check with recurrent fevers, shortness of breath worsening headache dizziness, nausea, vomiting or abdominal pain Health Concerns: continue all home medications as before Plan of Treatment: outpatient follow-up with primary care physician and Psychiatry as previously planned Assessment: as above Discharge Date/Time: 06/29/22 16:00
--- NOTE | 2022-06-29 14:22 | MHC.CM.PN ---
Patient lives in a sober living house [facility]. He is independent all functional mobility. Patient is discharged today. He will return to [facility]. T/W spoke with staff at the sober [facility]. They need DC summary and packet. That has been provided to the patient. The patient has also received a Last dose letter for MAT tomorrow. [facility] staff will provide transportation home. Patient instructed to call for hop picker once nurse finishes his discharge instructions.
[2022-06-29 15:14] LABS: Alanine Aminotransferase 100 U/L (0-40); Albumin Level 3.6 g/dL (3.5-5.0); Alkaline Phosphatase 112 U/L (39-117); Anion Gap 12 (12-20); Aspartate Amino Transferase 74 U/L (5-37); Bilirubin Direct 0.2 mg/dL (0.0-0.5); Bilirubin Total 0.5 mg/dL (0.0-1.0); Blood Urea Nitrogen 13 mg/dL (9-16); Carbon Dioxide 25 mmol/L (22-29); Chloride 107 mmol/L (96-108); Creatinine Clr Calc Pharmacy 154.5; Estimated Glomerular Filt Rate > 60; Glucose Random 92 mg/dL (60-115); Potassium 5.2 mmol/L (3.3-5.1); Sodium 139 mmol/L (135-145); Total Protein 7.2 g/dL (6.5-8.0)
[2022-06-30 18:37] LABS: Lyme (B. burgdorferi) PCR NOT DETECTED (NOT DETECTED)
== END 2022-06-29 16:00 | disposition home or self-care (01) | DRG 249 ==
LOC: HO.ED 06-28 06:39 → HO.EDOVER 06-28 08:51 → HO.IMC 06-28 16:41
PROVIDERS: Physician Assistant; Physician Assistant Medical; Admitting Provider Hospitalist; Emergency Provider Internal Medicine; Visit Provider Hospitalist
DX: R11.10 Vomiting, unspecified (principal); E87.20 Acidosis, unspecified; R50.9 Fever, unspecified; F17.210 Nicotine dependence, cigarettes, uncomplicated; E83.42 Hypomagnesemia; B19.20 Unspecified viral hepatitis C without hepatic coma; F32.9 Major depressive disorder, single episode, unspecified; F11.20 Opioid dependence, uncomplicated; F41.1 Generalized anxiety disorder; E86.0 Dehydration; Z20.822 Contact with and (suspected) exposure to COVID-19; Z21 Asymptomatic human immunodeficiency virus [HIV] infection status; Z71.6 Tobacco abuse counseling; Z88.0 Allergy status to penicillin; Z79.899 Other long term (current) drug therapy
CPT/HCPCS: 0241U; 36415; 70450; 71045; 74177; 76705; 80048; 80076; 80307; 81003; 82077; 82945; 83605; 83690; 83735; 84145; 84157; 85025; 86140; 87015; 87040; 87070; 87205; 87476; 87483; 87633; 89051; 99219; 99285; J0456; J0696; J3370; J3475; Q9967